=== PATIENT | female | born 1970 ===

== ENCOUNTER 2020-04-05 11:45 | Outpatient (REF) | payer OTHER, SELFPAY ==
[2020-04-05 14:15] LABS: SARS COV2 IgG Negative (Negative)
[2020-04-05 14:52] LABS: Creatinine Urine 91.46 mg/dL; Microalbumin Urine < 5.0 mg/L
== END 2020-04-05 11:46 | disposition home or self-care (01) ==
LOC: HO.WFDLDS 11:45
PROVIDERS: Visit Provider Family Medicine
DX: Z20.828 Contact with and (suspected) exposure to other viral communicable diseases (principal)
CPT/HCPCS: 82043; 86769; U0003

== ENCOUNTER 2020-04-06 08:08 | Outpatient (REF) | payer OTHER, SELFPAY ==
[2020-04-06 12:30] LABS: Alanine Aminotransferase 63 U/L (0-31); Albumin Level 4.4 g/dL (3.5-5.0); Alkaline Phosphatase 64 U/L (39-117); Anion Gap 12 (12-20); Aspartate Amino Transferase 35 U/L (5-31); Bilirubin Total 0.8 mg/dL (0.0-1.0); Blood Urea Nitrogen 12 mg/dL (9-16); Calcium 9.1 mg/dL (8.4-10.2); Carbon Dioxide 27 mmol/L (22-29); Chloride 100 mmol/L (96-108); Cholesterol 210 mg/dL; Estimated Glomerular Filt Rate > 60; Glucose Fasting 89 mg/dL (60-99); HDL Cholesterol 33 mg/dL; LDL Cholesterol Calculated 128 mg/dl; Potassium 4.4 mmol/l (3.3-5.1); Sodium 135 mmol/L (135-145); Total Protein 7.1 g/dL (6.5-8.0); Triglycerides 247 mg/dL
[2020-04-06 12:51] LABS: TSH reflex Free T4 1.98 mIU/mL (0.32-4.0)
== END 2020-04-06 08:09 | disposition home or self-care (01) ==
LOC: HO.WFDLDS 08:08
PROVIDERS: Visit Provider Family Medicine
DX: Z00.00 Encounter for general adult medical examination without abnormal findings (principal); Z13.220 Encounter for screening for lipoid disorders; Z13.29 Encounter for screening for other suspected endocrine disorder
CPT/HCPCS: 80053; 80061; 84443

== ENCOUNTER → 2022-03-16 08:50 | Outpatient (BNVA) | payer OTHER, SELFPAY | PROVIDERS: PCP Internal Medicine; Visit Provider Surgery | DX: K40.90 Unilateral inguinal hernia, without obstruction or gangrene, not specified as recurrent (principal); E66.01 Morbid (severe) obesity due to excess calories; Z68.30 Body mass index [BMI] 30.0-30.9, adult | CPT/HCPCS: 36415; 80053; 83036; 85025; 99202 ==

== ENCOUNTER 2022-03-16 09:25 | Outpatient (REF) | payer OTHER, SELFPAY ==
[2022-03-16 09:45] LABS: MANUAL DIFF FLAG NO
[2022-03-16 10:14] LABS: Basophils Percent Auto 0.7 % (0-2); Eosinophils Absolute Auto 0.1 X10*3/uL (0.0-0.4); Eosinophils Percent Auto 1.8 % (0-4); Hematocrit 45.6 % (37.0-47.0); Hemoglobin 15.5 g/dl (12.0-16.0); Imm Gran Abs Auto 0.03 X10*3/uL (0.00-0.03); Imm Gran Pct Auto 0.5 % (0.0-0.4); Lymphocytes Percent Auto 17.7 % (20-40); Mean Corpuscular Hemoglobin 31.7 pg (27.0-33.0); Mean Corpuscular Volume 93.3 fL (80.0-98.0); Mean Platelet Volume 10.4 fL (9.4-12.3); Monocytes Absolute Auto 0.5 X10*3/uL (0.1-1.2); Monocytes Percent Auto 8.2 % (2-11); Neutrophils Percent Auto 71.1 % (45-73); Platelet Count 188 X10*3/uL (160-400); Red Blood Count 4.89 X10*6/uL (4.20-5.50); Red Cell Distribution Width 12.4 % (11.0-16.0); White Blood Count 5.6 X10*3/uL (4.8-10.8)
[2022-03-16 10:29] LABS: Estimated Average Glucose 88 mg/dL; Hemoglobin A1c % 4.7 %
[2022-03-16 10:51] LABS: Alanine Aminotransferase 41 U/L (0-31); Albumin Level 4.4 g/dL (3.5-5.0); Alkaline Phosphatase 76 U/L (39-117); Anion Gap 14 (12-20); Aspartate Amino Transferase 26 U/L (5-31); Bilirubin Total 0.6 mg/dL (0.0-1.0); Blood Urea Nitrogen 9 mg/dL (9-16); Calcium 9.1 mg/dL (8.4-10.2); Carbon Dioxide 25 mmol/L (22-29); Chloride 105 mmol/L (96-108); Estimated Glomerular Filt Rate > 60; Glucose Random 98 mg/dL (60-115); Sodium 139 mmol/L (135-145); Total Protein 7.1 g/dL (6.5-8.0)
== END 2022-03-16 09:26 | disposition home or self-care (01) ==
LOC: HO.LAB 09:25
PROVIDERS: Visit Provider Surgery
DX: Z13.89 Encounter for screening for other disorder (principal)
CPT/HCPCS: 36415; 80053; 83036; 85025

== ENCOUNTER 2022-03-22 09:03 | Outpatient (REF) | payer OTHER, SELFPAY ==
--- NOTE | ~2022-03-22 | CT_ITS ---
EXAMINATION: CT PELVIS WITHOUT CONTRAST CLINICAL INFORMATION: Unilateral inguinal hernia COMPARISON: None TECHNIQUE: Helical scanning was performed with submillimeter collimation through the pelvis. Sagittal and coronal multiplanar 2-D reconstructions were obtained. This CT examination was performed using dose optimization techniques as appropriate, variously including the following: *Automated exposure control *Adjustment of mA and/or kV according to patient size (this includes techniques or standardized protocols for targeted exams where dose is matched to indication/reason for exam; i.e. extremities or head) *Use of iterative reconstruction technique DLP: 840 mGy-cm FINDINGS: There is a very large right direct inguinal hernia containing fat, small bowel, cecum and appendix. There is a large left inguinal hernia containing small bowel, fat and some of the bladder. This appears to have both direct and indirect inguinal hernia components. There is a small umbilical hernia containing fat. There is mild diverticulosis of the colon. Visualized bowel is otherwise unremarkable. There is no evidence of obstruction.. No ascites or enlarged lymph nodes. Vascular structures are normal. The prostate gland does not appear enlarged. Mild scoliosis with curvature of the lumbar sacral spine to the right and degenerative changes. CT/CT pelvis wo IV con IMPRESSION: Very large right inguinal hernia containing fat, small bowel, cecum and appendix. Large left inguinal hernia containing fat, small bowel and some of the bladder.
== END 2022-03-22 09:04 | disposition home or self-care (01) ==
LOC: HO.CT 09:03
PROVIDERS: Visit Provider Surgery
DX: K40.90 Unilateral inguinal hernia, without obstruction or gangrene, not specified as recurrent (principal)
CPT/HCPCS: 72192

== ENCOUNTER → 2022-03-30 09:04 | Outpatient (BNVA) | payer OTHER, SELFPAY | PROVIDERS: PCP Internal Medicine; Referring Provider Internal Medicine; Visit Provider Surgery | DX: K40.20 Bilateral inguinal hernia, without obstruction or gangrene, not specified as recurrent (principal); E66.01 Morbid (severe) obesity due to excess calories; R03.0 Elevated blood-pressure reading, without diagnosis of hypertension; Z68.30 Body mass index [BMI] 30.0-30.9, adult | CPT/HCPCS: 99212 ==

== ENCOUNTER → 2022-06-14 13:25 | Outpatient (BNVA) | payer OTHER, SELFPAY | PROVIDERS: PCP Internal Medicine; Visit Provider Surgery | DX: K40.20 Bilateral inguinal hernia, without obstruction or gangrene, not specified as recurrent (principal); E66.01 Morbid (severe) obesity due to excess calories; E78.1 Pure hyperglyceridemia; R03.0 Elevated blood-pressure reading, without diagnosis of hypertension; Z68.29 Body mass index [BMI] 29.0-29.9, adult | CPT/HCPCS: 99212 ==

== ENCOUNTER → 2022-08-06 09:03 | Outpatient (BNVA) | payer OTHER, SELFPAY | PROVIDERS: PCP Internal Medicine; Referring Provider Internal Medicine; Visit Provider Surgery | DX: K40.20 Bilateral inguinal hernia, without obstruction or gangrene, not specified as recurrent (principal); K40.90 Unilateral inguinal hernia, without obstruction or gangrene, not specified as recurrent; R03.0 Elevated blood-pressure reading, without diagnosis of hypertension; E78.1 Pure hyperglyceridemia; E66.01 Morbid (severe) obesity due to excess calories; Z68.29 Body mass index [BMI] 29.0-29.9, adult | CPT/HCPCS: 99212 ==

== ENCOUNTER 2022-08-23 06:07 | Day surgery (SDC) | payer OTHER, SELFPAY ==
[2022-08-17 12:37] VITALS: BMI 29.7
[2022-08-23 06:09] VITALS: BP 153/98; PULSE 74; RESP 18; TEMP 36.1; O2SAT 98
[2022-08-23] MEDS: Lactated Ringers 1,000 ML 100 ML IVCONT (06:33)
--- NOTE | 2022-08-23 06:55 | P.OP_ITS ---
Operative Note Operative Note Date of Service: 08/23/22 Narrative: Preop diagnosis: [Bilateral inguinal hernia, ? recurrent] Postop diagnosis: [Same; recurrent right direct and indirect inguinal hernia; recurrent direct left inguinal hernia containing viable properitoneal fat] Procedure: [Bilateral open repair with Bard polypropylene mesh of recurrent inguinal hernia] Surgeon: Chris Jacobson MD Assist: [] Anesthesia: [General via LMA; Marcaine, 0.5% with epi] Estimated blood loss: [3cc] Specimen: [Right indirect hernia sac] Intraoperative findings: [After the patient was shaved, an approximately 20 cm suprapubic incision extending into both groin just below the pubic tubercle was noted. Prior to the patient being shaved, this could not be discerned. A direct and indirect right inguinal hernia containing viable properitoneal fat was identified and the indirect hernia sac highly dissected and ligated with a [place] ring plasty performed. The right floor was imbricated and a standard [place] tension-free hernia repair performed. The entire left inguinal floor was disrupted from the pubic tubercle to the internal ring and was imbricated; a [place] tension-free herniorrhaphy with polypropylene mesh was performed.] Indications: [The patient is a 52-year-old [facility] min who moved to the [facility] and is had issues with bilateral inguinal hernias that are enlarging. There been no signs or symptoms of incarceration, strangulation or obstruction, however he has a transverse suprapubic incision from the left to right groin that may be consistent with pediatric hernia repairs. However, the patient has now recollection and is unable to obtain such history. Because the hernias are symptomatic, he was interested in repair, so I recommended open, bilateral inguinal hernia repair with mesh. The risks, benefits and alternatives were reviewed and the patient seemed understand and wanted to proceed. I reviewed the potential risks of: Bleeding, infection, hernia recurrence especially if weight gain or postoperative instructions are not followed, nerve entrapment, chronic pain, urinary retention, mesh complications that could require reoperation. The patient seemed understand his options including the option of continued observation or referral to a larger institution. He wanted to proceed. In the preoperative holding area, the previously hidden transverse pubic scar, approximately 8 in was noted in discussed with the patient. The additional risk of injury to his testicles if a prior hernia repair had disrupted blood supply an increased risk for pain related to distorted nerve anatomy was also reviewed with the patient. The option of rescheduling was reviewed but declined by the patient.] Procedure: [The patient was identified in the preoperative holding area by myself and the operative sites marked by me confirming bilateral inguinal hernia; since the right side was most symptomatic, the patient and I agreed that would I would begin on his right, most symptomatic side.. 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 The operative field hair had been clipped in preop holding and we discussed the previously not visible transverse pubic area scar and its glo ifications. The patient was again identified in the operating suite 3 and placed supine on the table. See anesthesia notes for full details regarding anesthesia care and management. An appropriate time-out was performed confirming the operative site and procedure. The patient was then widely prepped and draped in the usual manner using chlorprep which included both groins. I began at the patient's more symptomatic right groin: An ileoinguinal nerve block was performed using Marcaine, 0.5% with epi and a standard inguinal herniorrhaphy incision made sharply through the skin. Dissection was carried through all layers using electric cautery for dissection and hemostasis. Obvious scarring from the skin incision that went down through the external oblique aponeurosis and into the inguinal canal was present. Additional local was infiltrated is the external oblique aponeurosis, in the external oblique aponeurosis opened sharply in the direction of its fibers to the external ring. The ilioinguinal nerve was not identified through the dissection due to distorted anatomy. The cord was mobilized at the level of the pubic tubercle and surrounded with hernia tape. The floor was inspected and a direct hernia through the floor measuring approximately 2 x 8 cm was found; a large right indirect hernia sac extending into the right scrotum was also carefully dissected. Careful dissection of the spermatic cord to preserve the vessels and vas was performed to preserve these structures. The right indirect hernia sac was highly dissected, opened, its contents reduced and suture ligation performed, with the sac being sent for permanent section. Next, the floor was imbricated using a 2-0 Polysorb and a standard [place] tension-free herniorrhaphy performed using Bard 3 in x 6 in polypropylene patch that was trimmed to 2.5 by 5 inch and was sutured to the pubic tubercle and inguinal ligament using a 2-0 Polysorb. A new internal ring was made using 2-0 polypropylene suture. The new internal ring was snug enough that it could just accommodate a tip of a hemostat. Next, the operative field was inspected for hemostasis which was good, the external oblique aponeurosis was closed with a running 0 Polysorb suture, subcutaneous tissues closed with 3-0 Polysorb and skin closed with running 4-0 Monocryl subcuticular suture. Next, I changed gloves and performed a left ileoinguinal nerve block was performed using Marcaine, 0.5% with epi and a standard inguinal herniorrhaphy incision made sharply through the skin. Dissection was carried through all layers using electric cautery for dissection and hemostasis. Obvious scarring from the skin incision that went down through the external oblique aponeurosis and into the left inguinal canal was present as noted on the patient's right side. Additional local was infiltrated is the external oblique aponeurosis, in the external oblique aponeurosis opened sharply in the direction of its fibers to the external ring. The ilioinguinal nerve was not identified through the dissection due to distorted anatomy. The cord was mobilized at the level of the pubic tubercle and surrounded with hernia tape. The floor was inspected and a large direct hernia through the floor measuring approximately 2 x 8 cm was found; a large right indirect hernia sac extending into the right scrotum was also carefully dissected. Careful dissection of the spermatic cord to preserve the vessels and vas was performed to preserve these structures and there was no evidence of an indirect hernia sac. Next, the floor was imbricated using a 2-0 Polysorb and a standard [place] tension-free herniorrhaphy performed using Bard 3 in x 6 in polypropylene patch that was trimmed to 2.5 by 5 inch and was sutured to the pubic tubercle and inguinal ligament using a 2-0 Polysorb. A new internal ring was made using 2-0 polypropylene suture. The new internal ring was snug enough that it could just accommodate a tip of a hemostat. Next, the operative field was inspected for hemostasis which was good, the external oblique aponeurosis was closed with a running 0 Polysorb suture, subcutaneous tissues closed with 3-0 Polysorb and skin closed with running 4-0 Monocryl subcuticular suture. Patient tolerated the procedure well was sent to the recovery area in stable condition. All sponge and instrument counts were correct x2. At the patient's request, I contacted his Loretta by telephone at [phone] to apprise her of the procedure. Instructions regarding activity and pain management, urinary retention and bowel regime were reviewed. Questions were answered.]
--- NOTE | 2022-08-23 06:55 | MHC.SHP ---
Pre-Procedural Eval Section A Date of Service: 08/23/22 The patient is an INPATIENT: No The History & Physical has been completed within 30 days and I have reviewed it.: Yes Section B Chief Complaint: Bilateral inguinal hernia, without obstruction Allergies: Allergies Allergy/AdvReac Type Severity Reaction Status Date / Time No Known Allergies Allergy Verified 08/06/22 09:13 [No Known Allergies*] Plan I have reviewed the history and physical and performed a pertinent physical examination on my patient. No changes have occurred unless specified. Time Spent With Patient Time: Total time managing care of this patient today ____ minutes.
--- NOTE | 2022-08-23 07:16 | HO.ANESPROP2 ---
HPI - Anesthesia Eval Consult details Narrative: bilat. ihrs [facility] Active Problems Active Problems: All Active Problems (Updated 08/23/22 @ 06:22 by Camille Jaimes RN) Elevated blood pressure reading without diagnosis of hypertension (Acute) Morbid (severe) obesity due to excess calories (Acute) Inguinal hernia bilateral, non-recurrent (Acute) Hypertriglyceridemia (Acute) Right inguinal hernia (Acute) Past Medical History Medical History (Updated 08/23/22 @ 06:22 by Camille Jaimes RN) Close exposure to 2019 novel coronavirus Laboratory examination ordered as part of a routine general medical examination Right inguinal hernia Family History Family history of problems with anesthesia: No Surgical History Surgical History (Updated 08/23/22 @ 06:23 by Camille Jaimes RN) H/O colonoscopy History of cardiac radiofrequency ablation History of Problems with Anesthesia: No Social History Social History Household Members: Spouse and Children Housing: Apartment Alcohol intake: current Alcohol intake frequency: holidays/special occasions only Patient Tobacco Use Status: Former Tobacco user Quit Date: 2001 Tobacco use type: Cigarette Use of substances other than those prescribed or required for medical reasons: Yes Substance Use Frequency: Occasionally Are you DNR?: No Advance Directives: No Advance Directives Information Provided: Yes (brochure mailed) Advance Directives on File: No Eating poorly because of decreased appetite: No Nutrition Risks: No Nutritional Risk Meds Allergies Allergy/AdvReac Type Severity Reaction Status Date / Time No Known Allergies Allergy Verified 08/06/22 09:13 [No Known Allergies*] Active Medications: Current Medications Lactated Ringer's (Lr) 1,000 mls @ 100 mls/hr IVCONT .Q10H [facility] Last Admin: 08/23/22 06:33 Dose: 100 mls/hr Home Medications Medication Instructions Recorded Confirmed Last Taken Type No Known Home Meds 03/12/22 08/17/22 Unknown History Exam Exam Date and Time: August 23, 2022 0716 Height,Weight and Vital Signs: Height 6 ft 1 in Weight 102.4 kg Last Vital Signs Temp 96.9 F 08/23/22 06:09 Pulse 74 08/23/22 06:09 Resp 18 08/23/22 06:09 BP 153/98 H 08/23/22 06:09 Pulse Ox 98 08/23/22 06:09 O2 Del Method Room Air 08/23/22 06:09 Airway Mallampati Class: II TM Dist: >3cm Neck ROM: Full Heart: rrr Lungs: cta Assessment and Plan Assessment Anesthesia Assessment: Anesthesia Plan Discussed and Chart Reviewed Final Anesthetic Review Family History of Problems with Anesthesia: No History of Problems with Anesthesia: No NPO: Yes ASA Class: II Final Preanesthetic Review: No Changes in Pt Med Stat, Meds/Allgs Chart Reviewed, Consent Obtained/Reviewed and Anes Risks/Benef Reviewed Patient Risk: Low Procedure Risk: Intermediate Anesthetic Plan Anesthetic Plan: GA Disposition: Standard PACU
[2022-08-23 09:55] VITALS: BP 136/84; PULSE 96; RESP 16; TEMP 36.8; O2SAT 93
[2022-08-23 10:00] VITALS: BP 141/85; PULSE 94; RESP 15; O2SAT 93
[2022-08-23 10:05] VITALS: BP 132/90; PULSE 82; RESP 15; O2SAT 93
[2022-08-23 10:20] VITALS: BP 133/83; PULSE 83; RESP 15; O2SAT 96
[2022-08-23 10:29] VITALS: BP 129/80; PULSE 83; RESP 15; TEMP 36.7; O2SAT 97
== END 2022-08-23 11:03 | disposition home or self-care (01) ==
LOC: HO.SSS 06:08
PROVIDERS: PCP Internal Medicine; Visit Provider Surgery
PROC: (CPT 49520; principal; 2022-08-23 07:30)
DX: K40.21 Bilateral inguinal hernia, without obstruction or gangrene, recurrent (principal); E66.01 Morbid (severe) obesity due to excess calories; Z68.29 Body mass index [BMI] 29.0-29.9, adult
CPT/HCPCS: 49520; 88302; C1781; J0131; J0690; J1100; J1885; J2405; J3010

== ENCOUNTER → 2022-08-31 09:35 | Outpatient (BNVA) | payer OTHER, SELFPAY | PROVIDERS: PCP Internal Medicine; Visit Provider Surgery | DX: K40.21 Bilateral inguinal hernia, without obstruction or gangrene, recurrent (principal) | CPT/HCPCS: 99212 ==

== ENCOUNTER → 2022-10-01 09:05 | Outpatient (BNVA) | payer OTHER, SELFPAY | PROVIDERS: PCP Internal Medicine; Visit Provider Surgery | DX: K40.21 Bilateral inguinal hernia, without obstruction or gangrene, recurrent (principal); R03.0 Elevated blood-pressure reading, without diagnosis of hypertension; R39.11 Hesitancy of micturition; E78.1 Pure hyperglyceridemia; E66.01 Morbid (severe) obesity due to excess calories | CPT/HCPCS: 99212 ==

== ENCOUNTER → 2022-10-16 08:25 | Outpatient (BNVA) | payer OTHER, SELFPAY | PROVIDERS: PCP Internal Medicine; Visit Provider Surgery | DX: T81.89XA Other complications of procedures, not elsewhere classified, initial encounter (principal); R39.11 Hesitancy of micturition | CPT/HCPCS: 99212 ==

== ENCOUNTER → 2022-10-31 09:44 | Outpatient (BNVA) | payer OTHER, SELFPAY | PROVIDERS: PCP Internal Medicine; Visit Provider Surgery | DX: T81.89XA Other complications of procedures, not elsewhere classified, initial encounter (principal); R39.11 Hesitancy of micturition | CPT/HCPCS: 99212 ==

== ENCOUNTER 2023-01-02 13:18 | Outpatient (AMB) | payer OTHER, SELFPAY ==
--- NOTE | 2023-01-02 13:44 | MHC.OFFVIS ---
Intake Intake Visit Reasons: Hesitancy of micturition Intake Note: New Patient is Present for Hesitancy of Micturition Current Medication:none Antibiotic Allergy:None Blood Thinner: None Pharmacy: [facility] Patient couldn't provide urine and did not want Bladder Scan Allergies No Known Allergies [No Known Allergies*] Allergy (Verified 01/02/23 13:45) Medication List - Last Reconciled 01/02/23 by Jax Mcgill MD No Known Home Meds HPI HPI Comments History of Present Illness Details Ortega is a very pleasant male. He is a patient of Dr Dempsey. He is seen for the following urologic conditions - lower urinary tract symptoms Lower urinary tract symptoms Initial symptom presentation - lower urinary tract symptoms predominantly obstructive. Current treatment includes - observation Prostate Symptom Score - Initial moderate with bother 2 Symptoms include - frequency, weakness of stream - and are gradually progressing Knows that he drinks too much coffee Treatment plan - trial tamsulosin PFS Medical History Close exposure to 2019 novel coronavirus Laboratory examination ordered as part of a routine general medical examination Right inguinal hernia Surgical History H/O colonoscopy History of bilateral inguinal hernia repair (08/23/22) History of cardiac radiofrequency ablation Social History Household Members: Spouse and Children Housing: Apartment Alcohol intake: current Alcohol intake frequency: holidays/special occasions only Patient Tobacco Use Status: Former Tobacco user Quit Date: 2001 Tobacco use type: Cigarette Review of Systems Const Denies chills and Denies fever(s) Card Reports no additional complaints and Denies syncope Resp Denies cough GI Denies abdominal pain and Denies heartburn Reports as per HPI and Denies change in libido Neuro Denies syncope Psych Denies change in libido Endo Denies change in libido Physical Exam Const General: cooperative, healthy appearing, comfortable and no acute distress Orientation/consciousness: patient oriented x3 HEENT Face and sinus: Yes normal facial exam Mouth: moist mucous membranes Neck Neck: Yes normal visual inspection, Yes full ROM and Yes trachea midline Chest Chest palpation & inspection: normal inspection of the chest Resp Effort & Inspection: normal respiratory effort, able to speak in complete sentences and no respiratory distress GI Inspection: Yes normal to inspection Back/Spine/Pelvis Cervical Spine: normal cervical lordosis Thoracic/Lumbar Spine: thoracic and lumbar spine normal to inspection Skin General skin exam: no rashes or lesions noted Neuro General: patient oriented x3, gait normal, tone normal and moves all extremities Extrem General: Yes normal to inspection and Yes capillary refill normal Assessment & Plan Assessment & Plan (1) Urinary hesitancy: Code(s): R39.11 - Hesitancy of micturition (2) Bladder outlet obstruction: Code(s): N32.0 - Bladder-neck obstruction Plan Trial tamsulosin Medications: New tamsulosin 0.4 mg PO BEDTIME 30 days 30 caps 1RF N40.1 - Benign prostatic hyperplasia with lower urinary tract symptoms, R35.1 - Nocturia, R39.11 - Hesitancy of micturition Patient Instructions: Imaging studies, laboratory and physical exam results were discussed and reviewed in detail. No major barriers to patient understanding were identified. An opportunity to ask questions regarding the treatment plan was provided. All questions were answered. The patient expressed understanding and agreement with the above treatment plan. The patient is aware they should contact our office by phone for worsening of their current condition or the appearance of new urologic symptoms. Compliance is encouraged with any medications and followup testing that is ordered. It is a privilege to participate in the urologic care of your patient. If you have any questions or concerns regarding treatment for the above conditions, or other urologic issues, please do not hesitate to contact me. The office telephone contact is [phone]. This note is constructed using voice recognition software. While every effort has been made to ensure accuracy associate financial advisor errors may have been included. Yours sincerely, Dr Jax Mcgill MD, [facility] - Urology Providers of Expert, Compassionate Care for the Genitourinary System Coding Level of Care Code New Pt Level 4 (62304) Diagnoses Urinary hesitancy R39.11 Bladder outlet obstruction N32.0
== END 2023-01-02 14:07 | disposition home or self-care (01) ==
PROVIDERS: Visit Provider Urology
DX: R39.11 Hesitancy of micturition (principal); N32.0 Bladder-neck obstruction
CPT/HCPCS: 99204

== ENCOUNTER → 2023-01-02 13:18 | Outpatient (BNVA) | payer OTHER, SELFPAY | PROVIDERS: Visit Provider Urology | DX: R39.11 Hesitancy of micturition (principal); N32.0 Bladder-neck obstruction | CPT/HCPCS: 99202 ==

== ENCOUNTER 2023-07-02 10:18 | Outpatient (AMB) | payer OTHER, SELFPAY ==
[2023-07-02 10:23] VITALS: BP 144/90; PULSE 72; O2SAT 100; BMI 30.9
--- NOTE | 2023-07-02 10:23 | A.OFFPC_ITS ---
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: No Allergies No Known Allergies [No Known Allergies*] Allergy (Verified 07/02/23 10:24) Medication List - Last Reconciled 07/02/23 by Chey Dempsey MD Tobacco use date assessed: 07/02/23 Dental Screening Dental Screen Date: 07/02/23 Did you have a dental visit in the last 12 months?: Yes Did you have a dental problem in the last 6 months where you did not have access to dental care?: No Was dental information given to patient?: Patient has dentist HPI PEDIATRICIAN /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 Review of the notes sees Urology for bladder outlet obstruction on tamsulosin. Patient also has bilateral inguinal hernia with left inguinal repair August 2021 patient also had a right indirect inguinal hernia herniorrhaphy in August 2022. 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 in [place] ablation done 2009 for atrial fibrillation. [facility] Medical History (Updated 07/02/23 @ 11:01 by Chey Dempsey MD) Vision changes Nasal fracture Recurrent bilateral inguinal hernia (BIH) Morbid (severe) obesity due to excess calories Right inguinal hernia Laboratory examination ordered as part of a routine general medical examination Close exposure to 2019 novel coronavirus Surgical History (Updated 07/02/23 @ 10:30 by Chey Dempsey MD) Inguinal hernia bilateral, non-recurrent History of bilateral inguinal hernia repair (08/23/22) H/O colonoscopy History of cardiac radiofrequency ablation Family History (Updated 07/02/23 @ 10:44 by Chey Dempsey MD) Paternal Uncle Lung cancer Social History (Updated 07/02/23 @ 10:45 by Chey Dempsey MD) Household Members: Spouse and Children Housing: Apartment Alcohol intake: current Alcohol intake frequency: holidays/special occasions only Comment: 4x a week 2 glasses Patient Tobacco Use Status: Former Tobacco user Quit Date: 2001 Tobacco use type: Cigarette Years Smoked: 1999 quit service: No Current occupational status: employed Cognitive needs: No Hearing needs: No Vision needs: No Questionnaire PHQ-9 Over the last 2 weeks, how often have you been bothered by any of the following problems? 1. Little interest or pleasure in doing things: not at all 2. Feeling down, depressed, or hopeless: not at all 3. Trouble falling or staying asleep, or sleeping too much: not at all 4. Feeling tired or having little energy: not at all 5. Poor appetite or overeating: not at all 6. Feeling bad about yourself - or that you are a failure or have let yourself or your family down: not at all 7. Trouble concentrating on things, such as reading the newspaper or watching television: not at all 8. Moving or speaking so slowly that other people could have noticed. Or the opposite - being so fidgety or restless that you have been moving around a lot m ore than usual: not at all 9. Thoughts that you would be better off or of hurting yourself in some way: not at all Total score: 0 Depression Screening Interpretation: Negative Depression Screening Done: Yes Source: Developed by Drs. Enrike Parrish, Nancy Pham, Ajit Waggoner and colleagues, with an educational amelie from [employer]. Thrive Questionnaire Date Thrive assessed: 07/02/23 I am a: Patient What is your living situation today?: I have a steady place to live Within the past 12 months, did the food you bought not last and you didn't have the money to get more?: Never true Within the past 12 months, did you worry whether your food would run out before you got money to buy more?: Never true Do you have trouble paying for medicines?: No Do you have trouble getting transportation to medical appointments?: No Do you have trouble paying your heating and electricity bill?: No Do you have trouble taking care of your child, family member or friend?: No Do you have trouble with day-to-day activities such as bathing, preparing meals, shopping, managing finances, etc.?: No Are you currently unemployed and looking for a job?: No Are you interested in more education?: No Please select the resources that you would like help with: None THRIVE Score: 0 AUDIT C Alcohol Use Questionnaire (AUDIT-C) 1. How often do you have a drink containing alcohol?: 4 or more times a week 2. How many drinks containing alcohol do you have on a typical day when you are drinking?: 1 or 2 3. How often do you have six or more drinks on one occasion?: Never Total Score: 4 MANJINDER-7 AMB Questionnaire MANJINDER-7 Date MANJINDER - 7 assessed: 07/02/23 Feeling nervous, anxious, or on edge: 0 = Not at all Not being able to stop or control worryin = Not at all Worrying too much about different things: 0 = Not at all Trouble relaxin = Not at all Being so restless that it is hard to sit still: 0 = Not at all Becoming easily annoyed or irritable: 0 = Not at all Feeling afraid as if something awful might happen: 0 = Not at all Total MANJINDER-7 score (0-4 normal; 5-9 mild; 10-14 moderate; 15-21 severe): 0 Source: Developed by Drs. Enrike Parrish, Nancy Pham, Ajit Waggoner and colleagues, with an educational amelie from [employer]. Physical exam (Primary Care) Vital Signs: Last Vital Signs Pulse 72 07/02/23 10:23 BP 144/90 H 07/02/23 10:23 Pulse Ox 100 07/02/23 10:23 Oxygen Delivery Method Room Air 07/02/23 10:23 BMI result Body Mass Index 30.9 Tobacco/Smoking Status: Tobacco use Status Tobacco use date assessed 07/02/23 07/02/23 10:30 Patient Tobacco Use Status Former Tobacco user 07/02/23 10:30 Tobacco use type Cigarette 07/02/23 10:30 PHQ-9: PHQ-9 Score PHQ-9: Total score 0 07/02/23 10:30 Depression Screening Interpretation: Negative Thrive Assessment: Date of Thrive Assessment Date Thrive assessed 07/02/23 07/02/23 10:30 Const General: alert; No acute distress Eyes Conjunctivae: conjunctivae normal Resp Auscultation: clear to auscultation bilaterally Cardio Rate: regular rate Rhythm: regular rhythm GI Inspection: Yes normal to inspection Extrem General: Yes normal to inspection and No edema Assessment and Plan Assessment & Plan (1) Hypertriglyceridemia: Code(s): E78.1 - Pure hyperglyceridemia Plan: Avoid fried foods, chicken skin, eggs, butter margarine, pastries and meat. Be it pork or beef they have a lot of cholesterol LDL goal of less than 130 and triglyceride of less than 150 (2) Elevated blood pressure reading without diagnosis of hypertension: Code(s): R03.0 - Elevated blood-pressure reading, without diagnosis of hypertension Plan: Advised to continue monitoring blood pressure and record. Advised to sit down for about 3-5 minutes before getting the blood pressure. Low-salt diet (3) Obesity (BMI 30.0-34.9): Code(s): E66.9 - Obesity, unspecified Plan: Diet and exercise (4) Bladder outlet obstruction: Code(s): N32.0 - Bladder-neck obstruction Plan: Patient follows up with urology and placed on tamsulosin but decided to hold this off and will work it up with ultrasound. (5) Atrial fibrillation: Comment: Ablation 2009 Code(s): I48.91 - Unspecified atrial fibrillation Plan: Echocardiogram and EKG requested (6) Colon cancer screening: Code(s): Z12.11 - Encounter for screening for malignant neoplasm of colon Plan: Referral to Gastroenterology (7) LFT elevation: Code(s): R79.89 - Other specified abnormal findings of blood chemistry Plan: Advised ultrasound of the abdomen and hepatitis profile (8) Frequency of micturition: Code(s): R35.0 - Frequency of micturition Plan: Ultrasound of the bladder requested (9) Vision changes: Code(s): H53.9 - Unspecified visual disturbance Plan: Referral to Ophthalmology Orders: Orders Comprehensive Met. Panel Today R79.89 - Other specified abnormal findings of blood chemistry Complete Blood Count Auto Diff Today R79.89 - Other specified abnormal findings of blood chemistry Free T4 (Free Thyroxine) Today R79.89 - Other specified abnormal findings of blood chemistry Hepatitis B,C Profile Today R79.89 - Other specified abnormal findings of blood chemistry Lipid Panel Today E78.00 - Pure hypercholesterolemia, unspecified, R79.89 - Other specified abnormal findings of blood chemistry ECG 12 lead EKG Today I48.91 - Unspecified atrial fibrillation CA echo transthoracic complete Today I48.91 - Unspecified atrial fibrillation Thyroid Stimulating Hormone Today R79.89 - Other specified abnormal findings of blood chemistry Vitamin B12 and Folate Today R79.89 - Other specified abnormal findings of blood chemistry Prostate Specific Antigen Scr Today R79.89 - Other specified abnormal findings of blood chemistry US abdomen complete Today R79.89 - Other specified abnormal findings of blood chemistry US bladder Today R35.0 - Frequency of micturition Referrals Gastroenterology Referral Z12.11 - Encounter for screening for malignant neoplasm of colon Ophthalmology Referral H53.9 - Unspecified visual disturbance Coding Level of Care Code New Pt Level 4 (19549) Diagnoses Hypertriglyceridemia E78.1 Elevated blood pressure reading without diagnosis of hypertension R03.0 Obesity (BMI 30.0-34.9) E66.9 Bladder outlet obstruction N32.0 Atrial fibrillation I48.91 Colon cancer screening Z12.11 LFT elevation R79.89 Frequency of micturition R35.0 Vision changes H53.9
== END 2023-07-02 11:07 | disposition home or self-care (01) ==
PROVIDERS: PCP Internal Medicine; Visit Provider Internal Medicine
DX: E78.1 Pure hyperglyceridemia (principal); I48.91 Unspecified atrial fibrillation; E66.9 Obesity, unspecified; Z68.30 Body mass index [BMI] 30.0-30.9, adult; R03.0 Elevated blood-pressure reading, without diagnosis of hypertension; N32.0 Bladder-neck obstruction; Z12.11 Encounter for screening for malignant neoplasm of colon; R79.89 Other specified abnormal findings of blood chemistry; R35.0 Frequency of micturition; H53.9 Unspecified visual disturbance
CPT/HCPCS: 99214

== ENCOUNTER 2023-07-22 10:44 | Outpatient (REF) | payer OTHER, SELFPAY ==
--- NOTE | ~2023-07-22 | US_ITS ---
EXAMINATION: US ABDOMEN COMPLETE CLINICAL INFORMATION: Other specified abnormal findings of blood chemistry. COMPARISON: Ultrasound bladder 07/22/2023. TECHNIQUE: Real-time imaging of the abdominal viscera. Limited visualization due to bowel gas. FINDINGS: PANCREAS: Limited visualization of pancreatic tail and head. Imaged portion of pancreatic body is unremarkable. ABDOMINAL AORTA: Nonaneurysmal. INFERIOR VENA CAVA: Visualized portions are normal. LIVER: Mildly increased hepatic parenchymal heterogeneity and echogenicity could be associated with hepatocellular disease/hepatic steatosis and substantially limits visualization. Correlation with liver function tests and clinical exam recommended to determine further management. GALLBLADDER: No gallstones. No gallbladder wall thickening. COMMON BILE DUCT: Normal in caliber measuring 0.3 cm in diameter. RIGHT KIDNEY: No hydronephrosis. No renal calculi. Limited visualization. A 1.8 cm [id number] pole cyst with possible thin septation. There is no specific indication for follow-up imaging at this time. The kidney measures 12.4 cm in maximum dimension. LEFT KIDNEY: No hydronephrosis. No renal calculi. Limited visualization. The kidney measures 11.8 cm in maximum dimension. SPLEEN: Splenomegaly. The spleen measures 16.6 cm in maximum dimension. FREE FLUID: None. US/US abdomen complete IMPRESSION: 1. Mildly increased hepatic parenchymal heterogeneity and echogenicity could be associated with hepatocellular disease/hepatic steatosis and substantially limits visualization. Correlation with liver function tests and clinical exam recommended to determine further management. 2. Splenomegaly.
--- NOTE | ~2023-07-22 | US_ITS ---
EXAMINATION: US PELVIS LIMITED (BLADDER) CLINICAL INFORMATION: Frequency of micturition. COMPARISON: Ultrasound abdomen complete 07/22/2023. TECHNIQUE: Real-time imaging of the bladder. FINDINGS: BLADDER: Partially distended, limiting evaluation. Mild diffuse irregularity of the bladder wall, difficult to evaluate due to suboptimal distention. Bilateral ureteral jets are demonstrated. Prevoid bladder volume is 167.5 mL. Postvoid bladder volume is 29.2 mL. ADDITIONAL FINDINGS: Prostate volume 22.2 mL. Echogenic foci within the prostate are characteristic of coarse calcifications. US/US bladder IMPRESSION: 1. Mild diffuse irregularity of the bladder wall difficult to evaluate due to suboptimal distention. 2. Postvoid bladder volume is 29.2 mL. 3. Prostate volume 22.2 mL. Echogenic foci within the prostate are characteristic of coarse calcifications.
== END 2023-07-22 10:45 | disposition home or self-care (01) ==
LOC: HO.US 10:44
PROVIDERS: PCP Internal Medicine; Visit Provider Internal Medicine
DX: R79.89 Other specified abnormal findings of blood chemistry (principal); R35.0 Frequency of micturition
CPT/HCPCS: 76700; 76857

== ENCOUNTER → 2023-07-30 09:02 | Outpatient (REF) | payer OTHER, SELFPAY ==
--- NOTE | 2023-07-30 09:04 | CA_ITS ---
Transthoracic Echocardiogram Patient (Last, First, Middle): Ortega Vincent N Gender: Male Date of : 1970 Age: 53 Procedure Date: 07/30/2023 Procedure Type: Transthoracic Echocardiogram Location: OP Height: 185.42 cm Weight: 98.88 kg BSA: 2.23 m2 Heart Rate: bpm BP: 122 / 60 mmHg Landscaper: MARAH Referring MD: Chey Dempsey MD Infection Control Coordinator: Sánchez Marquez MD Symptoms: I48.91 - Unspecified atrial fibrillation Study Quality: Good ECG Rhythm: Sinus Conclusions: - 1. Normal LV ejection fraction 55-60% with mild LVH 2. Severe left atrial enlargement 3. Presence of closure device in the interatrial septum 4. Mild mitral regurgitation 5. Normal measured RV systolic pressure 6. Mildly dilated ascending aorta at 3.7 cm 7. No gross pericardial effusion Findings Left Ventricle Normal left ventricular cavity size. There is mildly increased left ventricular wall thickness. The left ventricular systolic function is normal. The visually estimated ejection fraction is between 55-60%. Spectral Doppler is indicative of a normal filling pattern. Right Ventricle Mildly increased right ventricular cavity size. There is normal right ventricular systolic function. Atria The left atrium is severely dilated. There is no evidence of interatrial shunt. An atrial septal closure device is seen. The right atrium is mildly dilated. Aortic Valve Normal aortic valve structure and function. There is no aortic valve stenosis. There is no aortic valve regurgitation. Mitral Valve Normal mitral valve structure and function. There is mild mitral valve regurgitation. There is no mitral valve stenosis. Pulmonic Valve The pulmonic valve is likely normal. There is trace to mild pulmonic valve regurgitation. Tricuspid Valve Normal tricuspid valve structure. There is mild tricuspid valve regurgitation. The right ventricular systolic pressure is normal. The right ventricular systolic pressure is 21 mmHg. Normal right atrial pressure. There is no evidence of pulmonary hypertension. Great Vessels The pulmonary artery was not well visualized. There is mild dilatation of the ascending aorta measuring 3.70 cm. Venous The inferior vena cava is normal in size and collapses greater than 50% with inspiration. Pericardium/Pleural There is no evidence of pericardial effusion. Prior Study Comparison No prior study available for comparison. Measurements 2D Linear Measurements IVSd: 1.24 0.6-0.9/0.6-1.0 cm LVIDd: 5.14 3.9-5.3/4.2-5.9 cm LVIDd Index: 2.30 2.4-3.2/2.2-3.1 cm/m2 LVIDs: 3.22 2.0-3.6 cm LVPWd: 1.23 0.7-1.1 cm Ao Root: 4.20 2.1-3.5 cm LA Diam: 5.20 2.7-3.8/3.0-4.0 cm LAIDs Index: 2.33 1.5-2.3 cm/m2 LV Mass: 317.11 67-162/88-224 g LV Mass Index: 142.20 43-95/49-115 g/m2 LVOT Diam: 2.40 3.0+(-)1.3 cm Mitral Valve MV Pk E: 0.78 MV PK A: 0.30 MV Decel Time: 198.00 E/A: 2.60 E'Lateral: 9.57 E'Medial: 8.70 E/E' Med: 9.00 E/E' Lat: 8.20 PHT: 58.00 MVA PHT: 3.79 Decel Cottle: 3.95 Aortic Valve AoV Pk Rashel: 1.26 AoV Mn Rashel: 0.85 AoV VTI: 0.33 AoV Pk Grad: 6.00 Aov Mn Grad: 3.00 LESVIA Cont.VTI: 2.74 LVOT LVOT Pk Rashel: 0.93 LVOT Mn Rashel: 0.57 LVOT VTI: 0.20 LVOT Pk Grad: 3.00 LVOT Mn Grad: 2.00 LVOT Diam: 2.40 LVOT Area: 4.52 Diastolic Function MV Pk E: 0.78 MV Pk A: 0.30 E/A: 2.60 E'Medial: 8.70 E/E' Med: 9.00 E' Laterial: 9.57 E/E' Lat: 8.20 Right Ventricle TAPSE (mm): 27.00 TVS' Rashel: 13.00 Tricuspid Valve TR Pk Rashel: 2.14 TR Pk Grad: 18.00 RA Press: 3.00 RVSP: 21.00 Great Vessels Aorta Ao Root-2D: 4.20 2.0-3.7 cm Ao Asc: 3.70 2.1-3.4 cm Pulmonary Valve PV Pk Rashel: 1.01 Peak PV Grad: 4.00 Updated in Other Vendor System with Status of Final Sánchez Marquez MD electronically signed on 07/31/2023 3:06:00 PM with status of Final
== END ==
LOC: HO.CARD 09:02
PROVIDERS: PCP Internal Medicine; Visit Provider Internal Medicine
DX: I48.91 Unspecified atrial fibrillation (principal)
CPT/HCPCS: 93306

== ENCOUNTER → 2023-07-30 09:04 | Outpatient (BNV) | payer OTHER, SELFPAY | PROVIDERS: PCP Internal Medicine; Visit Provider Internal Medicine Cardiovascular Disease | DX: I34.0 Nonrheumatic mitral (valve) insufficiency (principal); I36.1 Nonrheumatic tricuspid (valve) insufficiency | CPT/HCPCS: 93306 ==

== ENCOUNTER 2023-09-17 08:31 | Outpatient (AMB) | payer OTHER, SELFPAY ==
--- NOTE | 2023-09-17 08:38 | A.OFFVIS_ITS ---
Vital Signs 09/17/23 08:46 Height 6 ft 1.5 in Weight 222 lb BMI 28.9 BP 120/82 Blood Pressure Location Lt brachial Position Sitting Pulse 77 Intake Visit Reasons: Colonoscopy Screening Intake Note: Patient new consult for 2nd pre Colonoscopy. Patient cc: acid reflex with some burning sensation on and off, and hemorrhoids. 1st Colonoscopy was in [place] years ago and was normal. Survey Methodologist Required: No Accompanied by: Self / Same As Patient Allergies No Known Allergies [No Known Allergies*] Allergy (Verified 09/17/23 08:38) HPI HPI Colonoscopy Screening: Details: 53 year old? male is here today for pre colonoscopy screening.? Patient was sent to us by his PCP.? First colonoscopy few years ago in [place]. Patient denies any gastrointestinal symptoms in the past or at present.? However patient does report that he suffers with hemorrhoids at times. Once to treat hemorrhoids naturally. Tried with Janet in the past but it was not working. Occasional acid reflux, however that depends on what he eats. Acid reflux mild this morning. Patient admits to eating late at night last night. Denies any personal or family history of gastrointestinal disease, colon polyps, or cancer.? Denies history of difficulty with sedation or anesthesia in the past.? Negative for history of sleep apnea.? Denies any history of cardiac, renal, pulmonary, or hepatic disease.?? No history of infectious? diseases like hepatitis A, B, C, HIV or tuberculosis.? Patient is not on any anticoagulation t herapy. [facility] Medical History (Updated 07/02/23 @ 11:01 by Chey Dempsey MD) Vision changes Nasal fracture Recurrent bilateral inguinal hernia (BIH) Morbid (severe) obesity due to excess calories Right inguinal hernia Laboratory examination ordered as part of a routine general medical examination Close exposure to 2019 novel coronavirus Surgical History Inguinal hernia bilateral, non-recurrent History of bilateral inguinal hernia repair (08/23/22) H/O colonoscopy History of cardiac radiofrequency ablation Family History Paternal Uncle Lung cancer Social History Household Members: Spouse and Children Housing: Apartment Alcohol intake: current Alcohol intake frequency: holidays/special occasions only Comment: 4x a week 2 glasses Patient Tobacco Use Status: Former Tobacco user Quit Date: 2001 Tobacco use type: Cigarette Years Smoked: 1999 quit service: No Current occupational status: employed Cognitive needs: No Hearing needs: No Vision needs: No Review of Systems Const Denies weight gain and Denies weight loss ENT Reports no additional complaints, Denies dysphagia and Denies odynophagia Card Reports no additional complaints Resp Reports no additional complaints GI Denies abdominal pain, Denies belching, Denies melena, Denies bloating, Denies change in bowel habits, Denies dysphagia, Denies excessive flatus, Denies dyspepsia, Reports heartburn (Occasional), Denies diarrhea, Denies loose stools, Denies nausea, Denies odynophagia, Denies vomiting and Reports other (Hemorrhoids) Reports no additional complaints Musc Reports no additional complaints Neuro Reports no additional complaints Psych Reports no additional complaints Endo Reports no additional complaints Physical Exam Const General: healthy appearing and no acute distress Nutritional Appearance: obese Orientation/consciousness: patient oriented x3 Resp Effort & Inspection: normal respiratory effort, able to speak in complete sentences, no tracheal deviation and symmetric chest movement Auscultation: clear to auscultation bilaterally Cardio Rate: regular rate GI Inspection: Yes normal to inspection, No distended and Yes obesity Palpation (GI): Soft to palpation, not firm, nontender and No hepatosplenomegaly present Auscultation: normal bowel sounds General: Yes no CVA tenderness Back/Spine/Pelvis Back: no CVA tenderness Skin General skin exam: elasticity normal, turgor normal and dry skin Neuro General: patient oriented x3 Psych Appearance: grossly normal Mental Status: mental status grossly normal Assessment & Plan Assessment & Plan (1) Colon cancer screening: Code(s): Z12.11 - Encounter for screening for malignant neoplasm of colon Category: Medical Plan Patient denies any GI, cardiac or respiratory symptoms. ?Occasional acid reflux. Patient has hemorrhoids. Patient can try which Janet and Sitz baths. History of ablation several years ago for AFib. Patient had echo last month that was normal, normal EF. AFib was not seen. Denies any issues with anesthesia in the past.? Denies any history of sleep apnea.? No history infectious diseases in the past or present.? Not on any anticoagulation therapy.? No family or personal history of colon cancer or polyps.? Patient denies melena, hematochezia, unintentional weight loss or ribbon like stools.? Discussed at length the pre- procedure,? prep, diet & medications as well as what to expect prior, during and after the procedure.?? Stressed the importance of good bowel prep. ?Recommended the use of Vaseline or Calmoseptine OTC & baby wipes with bowel movements to promote comfort.? ?Patient verbalizes understanding and agrees to plan of care.? She was given the opportunity to ask questions and all questions answered.? We will see her after the procedure.? Medications: New bisacodyl (Dulcolax (bisacodyl)) take 4 tabs at noon the day before your colonoscopy 20 mg (4 x 5 mg) PO ONCE 1 day 4 tabs 0RF Z12.11 - Encounter for screening for malignant neoplasm of colon magnesium citrate Drink one bottle at 17:00 and 2nd bottle at 22:00 296 mL PO ONCE 296 mL 1RF Z12.11 - Encounter for screening for malignant neoplasm of colon Coding Level of Care Code New Pt Level 3 (60735) Diagnoses Colon cancer screening Z12.11 Time Spent (min) 40 Comment 30 minutes spent with patient and additional 10 minutes spent reviewing his records
[2023-09-17 08:46] VITALS: BP 120/82; PULSE 77; BMI 28.9
== END 2023-09-17 09:38 | disposition home or self-care (01) ==
PROVIDERS: PCP Internal Medicine; Visit Provider Nurse Practitioner Family
DX: Z12.11 Encounter for screening for malignant neoplasm of colon (principal); Z01.818 Encounter for other preprocedural examination
CPT/HCPCS: 99203

== ENCOUNTER → 2023-09-17 08:31 | Outpatient (BNVA) | payer OTHER, SELFPAY | PROVIDERS: PCP Internal Medicine; Visit Provider Nurse Practitioner Family | DX: Z12.11 Encounter for screening for malignant neoplasm of colon (principal) | CPT/HCPCS: 99202 ==

== ENCOUNTER 2023-09-30 13:25 | Outpatient (REF) | payer OTHER, SELFPAY ==
--- NOTE | 2023-09-30 13:32 | ECG_ITS ---
Test Reason : I48.91 Blood Pressure : / mmHG Vent. Rate : 064 BPM Atrial Rate : 064 BPM P-R Int : 162 ms QRS Dur : 106 ms QT Int : 402 ms P-R-T Axes : 073 053 051 degrees QTc Int : 414 ms Normal sinus rhythm Normal ECG No previous ECGs available Referred By: Chey Dempsey Electronically Signed By:JEREMY HUFFMAN MD
[2023-09-30 13:45] LABS: MANUAL DIFF FLAG NO
[2023-09-30 14:18] LABS: Basophils Percent Auto 0.6 % (0-2); Eosinophils Absolute Auto 0.1 X10*3/uL (0.0-0.4); Eosinophils Percent Auto 0.9 % (0-4); Hematocrit 41.9 % (42.0-52.0); Hemoglobin 14.9 g/dl (14.0-18.0); Imm Gran Abs Auto 0.04 X10*3/uL (0.00-0.03); Imm Gran Pct Auto 0.6 % (0.0-0.4); Lymphocytes Absolute Auto 1.1 X10*3/uL (1.2-4.9); Lymphocytes Percent Auto 15.9 % (20-40); Mean Corpuscular HGB Conc 35.6 g/dl (31.0-36.0); Mean Corpuscular Hemoglobin 32.5 pg (27.0-33.0); Mean Corpuscular Volume 91.5 fL (80.0-98.0); Mean Platelet Volume 9.8 fL (9.4-12.4); Monocytes Absolute Auto 0.5 X10*3/uL (0.1-1.2); Monocytes Percent Auto 7.1 % (2-11); Neutrophils Absolute Auto 5.1 x10*3/uL (2.0-8.3); Neutrophils Percent Auto 74.9 % (45-73); Platelet Count 210 X10*3/uL (160-400); Red Blood Count 4.58 X10*6/uL (4.60-5.80); White Blood Count 6.9 X10*3/uL (4.8-10.8)
[2023-09-30 15:05] LABS: Alanine Aminotransferase 30 U/L (0-40); Albumin Level 4.2 g/dL (3.5-5.0); Alkaline Phosphatase 58 U/L (39-117); Anion Gap 12 (12-20); Aspartate Amino Transferase 19 U/L (5-37); Bilirubin Total 0.8 mg/dL (0.0-1.0); Blood Urea Nitrogen 12 mg/dL (9-16); Calcium 9.2 mg/dL (8.4-10.2); Carbon Dioxide 26 mmol/L (22-29); Chloride 102 mmol/L (96-108); Cholesterol 186 mg/dL (<200); Estimated Glomerular Filt Rate > 60; Glucose Random 84 mg/dL (60-115); HDL Cholesterol 44 mg/dL (>40); LDL Cholesterol Calculated 107 mg/dL (<100); Potassium 3.6 mmol/L (3.3-5.1); Sodium 136 mmol/L (135-145); Triglycerides 175 mg/dL (<150)
[2023-09-30 15:26] LABS: Free T4 (Free Thyroxine) 0.82 ng/dL (0.71-1.85); Thyroid Stimulating Hormone 1.48 uIU/mL (0.32-4.0)
[2023-09-30 15:30] LABS: Prostate Specific Antigen Scr 1.07 ng/mL (<0.05-4.0); Vitamin B12 417 pg/mL (200-900)
[2023-10-01 08:42] LABS: HBS Num1 0.68 mIU/mL (0-7.99); HBc Num1 0.08 S/CO (0.00-0.79); HBsAGNum1 0.33 S/CO (0.00-0.99); Hepatitis B Core Antibody Nonreactive (Nonreactive); Hepatitis B Surface Antigen Negative (Negative); ~HepC Num1 0.15 S/CO (0.00-0.79); ~Hepatitis B Surface Antibody NONREACTIVE (Nonreactive); ~Hepatitis C Antibody Nonreactive (Nonreactive)
== END 2023-09-30 13:26 | disposition home or self-care (01) ==
LOC: HO.LAB 13:25
PROVIDERS: PCP Internal Medicine; Visit Provider Internal Medicine
DX: R79.89 Other specified abnormal findings of blood chemistry (principal); I48.91 Unspecified atrial fibrillation; E78.00 Pure hypercholesterolemia, unspecified
CPT/HCPCS: 36415; 80053; 80061; 82607; 82746; 84153; 84439; 84443; 85025; 86704; 86706; 86803; 87340; 93005

== ENCOUNTER → 2023-09-30 13:32 | Outpatient (BNV) | payer OTHER, SELFPAY | PROVIDERS: PCP Internal Medicine; Visit Provider Internal Medicine Cardiovascular Disease | DX: I48.91 Unspecified atrial fibrillation (principal) | CPT/HCPCS: 93010 ==

== ENCOUNTER 2023-10-04 14:41 | Outpatient (AMB) | payer OTHER, SELFPAY ==
[2023-10-04 14:42] VITALS: BP 124/82; PULSE 75; O2SAT 98; BMI 28.8
--- NOTE | 2023-10-04 14:42 | A.OFFPC_ITS ---
Vital Signs 10/04/23 14:42 Height 6 ft 1.5 in Weight 221 lb BMI 28.8 BP 124/82 Blood Pressure Location Lt brachial Position Sitting Pulse 75 Pulse Source Pulse Oximeter Pulse Oximetry (%) 98 Oxygen Delivery Method Room Air Intake Visit Reasons: 2 month f/u Financial Services Counselor Required: No Allergies No Known Allergies [No Known Allergies*] Allergy (Verified 10/04/23 14:43) Tobacco use date assessed: 10/04/23 Dental Screening Dental Screen Date: 07/02/23 Did you have a dental visit in the last 12 months?: Yes Did you have a dental problem in the last 6 months where you did not have access to dental care?: No Was dental information given to patient?: Patient has dentist HPI 2 month f/u HPI Details 53-year-old overweight male with hyperch olesterolemia bladder outlet obstruction atrial fibrillation last seen in June 2023. Noted to have an elevated blood pressure before and advised to monitor. Patient was reminded to have the colon test also this year. 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 [facility] Medical History (Updated 10/04/23 @ 15:17 by Chey Dempsey MD) Obesity (BMI 30.0-34.9) Urinary hesitancy LFT elevation Vision changes Nasal fracture Recurrent bilateral inguinal hernia (BIH) Morbid (severe) obesity due to excess calories Right inguinal hernia Laboratory examination ordered as part of a routine general medical examination Close exposure to 2019 novel coronavirus Surgical History Inguinal hernia bilateral, non-recurrent History of bilateral inguinal hernia repair (08/23/22) H/O colonoscopy History of cardiac radiofrequency ablation Family History Paternal Uncle Lung cancer Social History Household Members: Spouse and Children Housing: Apartment Alcohol intake: current Alcohol intake frequency: holidays/special occasions only Comment: 4x a week 2 glasses Patient Tobacco Use Status: Former Tobacco user Quit Date: 2001 Tobacco use type: Cigarette Years Smoked: 1999 quit service: No Current occupational status: employed Cognitive needs: No Hearing needs: No Vision needs: No Questionnaire Thrive Questionnaire Date Thrive assessed: 10/04/23 I am a: Patient What is your living situation today?: I have a steady place to live Within the past 12 months, did the food you bought not last and you didn't have the money to get more?: Never true Within the past 12 months, did you worry whether your food would run out before you got money to buy more?: Never true Do you have trouble paying for medicines?: No Do you have trouble getting transportation to medical appointments?: No Do you have trouble paying your heating and electricity bill?: No Do you have trouble taking care of your child, family member or friend?: No Do you have trouble with day-to-day activities such as bathing, preparing meals, shopping, managing finances, etc.?: No Are you currently unemployed and looking for a job?: No Are you interested in more education?: No Please select the resources that you would like help with: None THRIVE Score: 0 AUDIT C Alcohol Use Questionnaire (AUDIT-C) 1. How often do you have a drink containing alcohol?: 4 or more times a week 2. How many drinks containing alcohol do you have on a typical day when you are drinking?: 1 or 2 3. How often do you have six or more drinks on one occasion?: Never Total Score: 4 MANJINDER-7 AMB Questionnaire MANJINDER-7 Date MANJINDER - 7 assessed: 10/04/23 Source: Developed by Drs. Enrike Parrish, Nancy Pham, Ajit Waggoner and colleagues, with an educational amelie from [employer]. Physical exam (Primary Care) Vital Signs: Last Vital Signs Pulse 75 10/04/23 14:42 BP 124/82 10/04/23 14:42 Pulse Ox 98 10/04/23 14:42 Oxygen Delivery Method Room Air 10/04/23 14:42 BMI result Body Mass Index 28.8 Tobacco/Smoking Status: Tobacco use Status Tobacco use date assessed 10/04/23 10/04/23 14:43 Patient Tobacco Use Status Former Tobacco user 10/04/23 14:43 Tobacco use type Cigarette 10/04/23 14:43 Thrive Assessment: Date of Thrive Assessment Date Thrive assessed 10/04/23 10/04/23 14:43 Const General: alert; No acute distress Eyes Conjunctivae: conjunctivae normal Resp Auscultation: clear to auscultation bilaterally Cardio Rate: regular rate Rhythm: regular rhythm GI Inspection: Yes normal to inspection Extrem General: Yes normal to inspection and No edema Assessment and Plan Assessment & Plan (1) Elevated blood pressure reading without diagnosis of hypertension: Code(s): R03.0 - Elevated blood-pressure reading, without diagnosis of hypertension Plan: Blood pressure follow-up is normal with no medication. (2) Hypertriglyceridemia: Code(s): E78.1 - Pure hyperglyceridemia Plan: Avoid fried foods, chicken skin, eggs, butter margarine, pastries and meat. Be it pork or beef they have a lot of cholesterol LDL goal of less than 130 and triglyceride of less than 150. Will continue to monitor for now (3) Fatty liver: Comment: With splenomegaly August 2023 Code(s): K76.0 - Fatty (change of) liver, not elsewhere classified Plan: Low-fat diet and exercise (4) Overweight (BMI 25.0-29.9): Code(s): E66.3 - Overweight Plan: Diet and exercise (5) Ascending aorta dilatation: Comment: 07/2023 3.7 cm Code(s): I77.810 - Thoracic aortic ectasia Plan: July 2023 last echocardiogram will follow-up in 1 year Coding Level of Care Code Est Pt Level 4 (87535) Diagnoses Elevated blood pressure reading without diagnosis of hypertension R03.0 Hypertriglyceridemia E78.1 Fatty liver K76.0 Overweight (BMI 25.0-29.9) E66.3 Ascending aorta dilatation I77.810
== END 2023-10-04 17:24 | disposition home or self-care (01) ==
PROVIDERS: PCP Internal Medicine; Visit Provider Internal Medicine
DX: R03.0 Elevated blood-pressure reading, without diagnosis of hypertension (principal); I77.810 Thoracic aortic ectasia; E78.1 Pure hyperglyceridemia; K76.0 Fatty (change of) liver, not elsewhere classified; E66.3 Overweight
CPT/HCPCS: 99214

== ENCOUNTER 2024-01-24 09:04 | Outpatient (AMB) | payer OTHER, SELFPAY ==
--- NOTE | 2024-01-24 09:06 | MHC.PC.OV ---
Vital Signs 01/24/24 09:08 Height 6 ft 1.5 in Weight 227 lb BMI 29.5 BP 120/78 Blood Pressure Location Lt brachial Position Sitting Pulse 79 Pulse Source Pulse Oximeter Pulse Oximetry (%) 98 Oxygen Delivery Method Room Air Intake Visit Reasons: Annual Exam Intake Note: Patient is here today for a physical. Incendiary Powder Mixer Required: No Painter Ordnance: Not Required per policy Accompanied by: Self / Same As Patient Allergies No Known Allergies [No Known Allergies*] Allergy (Verified 01/24/24 09:08) Medication List - Last Reconciled 01/24/24 by Chey Dempsey MD bisacodyl (Dulcolax (bisacodyl)) 20 mg (4 x 5 mg) PO ONCE 1 day magnesium citrate 296 mL PO ONCE Tobacco use date assessed: 01/24/24 Dental Screening Dental Screen Date: 07/02/23 HPI Annual Exam HPI Details 53-year-old overweight male(noted 6 lb weight gain) with hypertriglyceridemia fatty liver and ascending aorta dilatation last seen in September 2023. Patient's last echocardiogram was done in July 2023 with an ascending aorta of 3.7. february colon test. occ chest pain PFSH Medical History (Updated 01/24/24 @ 09:52 by Chey Dempsey MD) Obesity (BMI 30.0-34.9) Urinary hesitancy LFT elevation Vision changes Nasal fracture Recurrent bilateral inguinal hernia (BIH) Morbid (severe) obesity due to excess calories Right inguinal hernia Laboratory examination ordered as part of a routine general medical examination Close exposure to 2019 novel coronavirus Surgical History Inguinal hernia bilateral, non-recurrent History of bilateral inguinal hernia repair (08/23/22) H/O colonoscopy History of cardiac radiofrequency ablation Family History (Updated 01/24/24 @ 09:07 by KRISTIN Villa) Paternal Uncle Lung cancer Social History (Updated 01/24/24 @ 09:34 by Chey Dempsey MD) Household Members: Spouse and Children Housing: Apartment Alcohol intake: current Alcohol intake frequency: holidays/special occasions only Comment: 4x a week 2 glasses Patient Tobacco Use Status: Former Tobacco user Tobacco use type: Cigarette Years Smoked: 1999 quit oral cannabis e-Cigarette/Vaping Use: Never Used Second Hand Smoke Exposure: No service: No Current occupational status: employed Cognitive needs: No Hearing needs: No Vision needs: No Questionnaire PHQ-9 Over the last 2 weeks, how often have you been bothered by any of the following problems? 1. Little interest or pleasure in doing things: not at all 2. Feeling down, depressed, or hopeless: not at all 3. Trouble falling or staying asleep, or sleeping too much: several days 4. Feeling tired or having little energy: several days 5. Poor appetite or overeating: not at all 6. Feeling bad about yourself - or that you are a failure or have let yourself or your family down: not at all 7. Trouble concentrating on things, such as reading the newspaper or watching television: not at all 8. Moving or speaking so slowly that other people could have noticed. Or the opposite - being so fidgety or restless that you have been moving around a lot more than usual: not at all 9. Thoughts that you would be better off or of hurting yourself in some way: not at all Total score: 2 Depression Screening Interpretation: Positive Depression Screening Done: Yes Source: Developed by Drs. Enrike Parrish, Nancy Pham, Ajit Waggoner and colleagues, with an educational amelie from [employer]. Thrive Questionnaire Date Thrive assessed: 10/04/23 I am a: Patient What is your living situation today?: I have a steady place to live Within the past 12 months, did the food you bought not last and you didn't have the money to get more?: Never true Within the past 12 months, did you worry whether your food would run out before you got money to buy more?: I choose not to answer this question Do you have trouble paying for medicines?: I choose not to answer this question Do you have trouble getting transportation to medical appointments?: No Do you have trouble paying your heating and electricity bill?: Yes Do you have trouble taking care of your child, family member or friend?: No Do you have trouble with day-to-day activities such as bathing, preparing meals, shopping, managing finances, etc.?: No Are you currently unemployed and looking for a job?: No Are you interested in more education?: No Please select the resources that you would like help with: None Currently or been in a relationship where the following occur: No concerns reported THRIVE Score: 1 AUDIT C Alcohol Use Questionnaire (AUDIT-C) 1. How often do you have a drink containing alcohol?: 2-3 times a week 2. How many drinks containing alcohol do you have on a typical day when you are drinking?: 1 or 2 3. How often do you have six or more drinks on one occasion?: Monthly Total Score: 5 MANJINDER-7 AMB Questionnaire MANJINDER-7 Date MANJINDER - 7 assessed: 01/24/24 Feeling nervous, anxious, or on edge: 0 = Not at all Not being able to stop or control worryin = Not at all Worrying too much about different things: 0 = Not at all Trouble relaxin = Not at all Being so restless that it is hard to sit still: 0 = Not at all Becoming easily annoyed or irritable: 0 = Not at all Feeling afraid as if something awful might happen: 0 = Not at all Total MANJINDER-7 score (0-4 normal; 5-9 mild; 10-14 moderate; 15-21 severe): 0 Source: Developed by Drs. Enrike Parrish, Nancy Pham, Ajit Waggoner and colleagues, with an educational amelie from [employer]. Review of Systems Const Denies poor appetite and Denies weakness Eyes Denies no additional complaints ENT Reports Normal hearing present, Denies dizziness, Denies nasal congestion, Denies tinnitus and Denies sore throat Card Denies chest pain, Denies syncope, Denies rapid heart rate and Denies dyspnea Resp Denies cough and Denies dyspnea GI Denies change in stool character, Reports constipation, Denies diarrhea, Denies nausea and Denies vomiting Denies dysuria and Denies urinary frequency Neuro Reports Normal hearing present, Denies confusion, Denies dizziness, Denies syncope and Denies weakness Psych Denies confusion Physical exam (Primary Care) Vital Signs: Last Vital Signs Pulse 79 01/24/24 09:08 BP 120/78 01/24/24 09:08 Pulse Ox 98 01/24/24 09:08 Oxygen Delivery Method Room Air 01/24/24 09:08 BMI result Body Mass Index 29.5 Tobacco/Smoking Status: Tobacco use Status Tobacco use date assessed 01/24/24 01/24/24 09:12 Patient Tobacco Use Status Former Tobacco user 01/24/24 09:12 Tobacco use type Cigarette 01/24/24 09:12 e-Cigarette/Vaping Use Never Used 01/24/24 09:12 PHQ-9: PHQ-9 Score PHQ-9: Total score 2 01/24/24 09:12 Depression Screening Interpretation: Positive Thrive Assessment: Date of Thrive Assessment Date Thrive assessed 10/04/23 01/24/24 09:12 Currently or been in a relationship where the following occur: No concerns reported Const General: No confusion Orientation/consciousness: No confusion HENMT Head: Yes normocephalic Ears: external ears normal and TM's normal bilaterally Face and sinus: Yes normal facial exam Mouth: moist mucous membranes Throat: Yes tonsils normal Eyes Conjunctivae: conjunctivae normal Pupils: Equal, round and reactive pupils present and Pupil accommodation reflex normal Direct Ophthalmoscopy: normal light reflex Neck Neck: No lymphadenopathy Thyroid: Thyroid normal Chest Chest palpation & inspection: normal inspection of the chest Resp Effort & Inspection: normal respiratory effort and no audible wheezes Auscultation: clear to auscultation bilaterally, no crackles, no wheezes and lung sounds not diminished Cardio Rate: regular rate Rhythm: regular rhythm Peripheral pulses: radial pulses present and dorsalis pedis present GI Palpation (GI): no masses Auscultation: normal bowel sounds and normoactive bowel sounds Rectal Exam - Male: Yes deferred Skin General skin exam: no rashes or lesions noted Rashes: no rashes Neuro General: No confusion Cranial nerves: Yes Equal, round and reactive pupils present and Yes Normal hearing present Cognition (Neuro): normal cognition Gait exam (Neuro): Normal gait present Motor exam (neuro): 5/5 motor strength present throughout Deep tendon reflexes (DTR's): Right brachioradialis reflex intensity grade: 2+, Left brachioradialis reflex intensity grade: 2+, Right patellar reflex intensity grade: 2+ and Left patellar reflex intensity grade: 2+ Extrem General: No edema Assessment and Plan Assessment & Plan (1) Annual physical exam: Code(s): Z00.00 - Encounter for general adult medical examination without abnormal findings Plan: Patient is advised to eat healthy, keep well hydrated, keep active and have adequate sleep. (2) Hypertriglyceridemia: Code(s): E78.1 - Pure hyperglyceridemia Plan: Avoid fried foods, chicken skin, eggs, butter margarine, pastries and meat. Be it pork or beef they have a lot of cholesterol LDL goal of less than 130 and triglyceride of less than 150. (3) Atrial fibrillation: Comment: Ablation 2009 Code(s): I48.91 - Unspecified atrial fibrillation Plan: Stable (4) Fatty liver: Comment: With splenomegaly August 2023 Code(s): K76.0 - Fatty (change of) liver, not elsewhere classified Plan: Low-fat diet and exercise (5) Shoulder pain, right: Code(s): M25.511 - Pain in right shoulder Orders: Orders XR shoulder RT min 2V Today M25.511 - Pain in right shoulder PT Evaluation and Treatment Today M25.511 - Pain in right shoulder Coding Level of Care Code Est Pt Prev Care 40-64y(29041) Diagnoses Annual physical exam Z00.00 Hypertriglyceridemia E78.1 Atrial fibrillation I48.91 Fatty liver K76.0 Shoulder pain, right M25.511
[2024-01-24 09:08] VITALS: BP 120/78; PULSE 79; O2SAT 98; BMI 29.5
== END 2024-01-24 10:06 | disposition home or self-care (01) ==
PROVIDERS: PCP Internal Medicine; Visit Provider Internal Medicine
DX: Z00.00 Encounter for general adult medical examination without abnormal findings (principal); E78.1 Pure hyperglyceridemia; I48.91 Unspecified atrial fibrillation; K76.0 Fatty (change of) liver, not elsewhere classified; M25.511 Pain in right shoulder
CPT/HCPCS: 99396

== ENCOUNTER 2024-03-30 07:28 | Day surgery (SDC) | payer OTHER, SELFPAY ==
[2024-03-26 10:40] VITALS: BMI 29.5
--- NOTE | 2024-03-27 12:05 | HO.ANESPROP2 ---
Documented by User: Ema August NP 03/27/24 12:05 HPI - Anesthesia Eval Consult details Narrative: 53yo M for Colonoscopy PMFSH Active Problems Active Problems: All Active Problems Shoulder pain, right (Acute) Annual physical exam (Acute) Ascending aorta dilatation (Acute) Overweight (BMI 25.0-29.9) (Acute) Fatty liver (Acute) Frequency of micturition (Acute) Colon cancer screening (Acute) Atrial fibrillation (Acute) Bladder outlet obstruction (Acute) Suture granuloma (Acute) Hypertriglyceridemia (Acute) Elevated blood pressure reading without diagnosis of hypertension (Acute) Vision changes (Acute) Past Medical History Medical History Hypertriglyceridemia Ascending aorta dilatation Fatty liver Vision changes LFT elevation Nasal fracture Obesity (BMI 30.0-34.9) Urinary hesitancy Morbid (severe) obesity due to excess calories Family History Family History Paternal Uncle Lung cancer Family history of problems with anesthesia: No Surgical History Surgical History History of bilateral inguinal hernia repair (08/23/22) H/O colonoscopy History of cardiac radiofrequency ablation History of Problems with Anesthesia: No Social History Social History (Updated 01/24/24 @ 09:34 by Chey Dempsey MD) Household Members: Spouse and Children Housing: Apartment Are you a primary healthcare administration internship to a significant other at home: No Do you presently have visiting nurse or other home services: No Alcohol intake: current Alcohol intake frequency: holidays/special occasions only Comment: 4x a week 2 glasses Patient Tobacco Use Status: Former Tobacco user Tobacco use type: Cigarette Years Smoked: 1999 quit oral cannabis e-Cigarette/Vaping Use: Never Used Second Hand Smoke Exposure: No Substance Use Frequency: Occasionally Have you been hit, kicked, punched, or otherwise hurt by someone within the past year? If so, by whom?: No Are you DNR?: No Advance Directives: No Advance Directives Information Provided: Yes Recently lost weight without trying: No Nutrition Risks: No Nutritional Risk Poor oral hygiene: No service: No Current occupational status: employed Cognitive needs: No Hearing needs: No Vision needs: No Meds Allergies Allergy/AdvReac Type Severity Reaction Status Date / Time No Known Allergies Allergy Verified 03/30/24 08:05 [No Known Allergies*] Home Medications ?Medication ?Instructions ?Recorded ?Confirmed ?Last Taken ?Type No Known Home Meds 03/30/24 03/30/24 Unknown History Exam Height,Weight and Vital Signs: Height 6 ft 1.5 in Weight 102.965 kg Narrative Narrative: ECHO 2023 Conclusions: - 1. Normal LV ejection fraction 55-60% with mild LVH 2. Severe left atrial enlargement 3. Presence of closure device in the interatrial septum 4. Mild mitral regurgitation 5. Normal measured RV systolic pressure 6. Mildly dilated ascending aorta at 3.7 cm 7. No gross pericardial effusion EKG 2023 Vent. Rate : 064 BPM Atrial Rate : 064 BPM P-R Int : 162 ms QRS Dur : 106 ms QT Int : 402 ms P-R-T Axes : 073 053 051 degrees QTc Int : 414 ms Normal sinus rhythm Normal ECG No previous ECGs available Assessment and Plan Assessment Anesthesia Assessment: Chart Reviewed Final Anesthetic Review Family History of Problems with Anesthesia: No History of Problems with Anesthesia: No Documented by User: Wanda Jones MD 03/30/24 08:08 COUNTS INCLUDE 234 BEDS AT THE [facility] Past Medical History Medical History Hypertriglyceridemia Ascending aorta dilatation Fatty liver Vision changes LFT elevation Nasal fracture Obesity (BMI 30.0-34.9) Urinary hesitancy Morbid (severe) obesity due to excess calories Family History Family History Paternal Uncle Lung cancer Surgical History Surgical History History of bilateral inguinal hernia repair (08/23/22) H/O colonoscopy History of cardiac radiofrequency ablation Social History Social History (Updated 01/24/24 @ 09:34 by Chey Dempsey MD) Household Members: Spouse and Children Housing: Apartment Are you a primary healthcare administration internship to a significant other at home: No Do you presently have visiting nurse or other home services: No Alcohol intake: current Alcohol intake frequency: holidays/special occasions only Comment: 4x a week 2 glasses Patient Tobacco Use Status: Former Tobacco user Tobacco use type: Cigarette Years Smoked: 1999 quit oral cannabis e-Cigarette/Vaping Use: Never Used Second Hand Smoke Exposure: No Substance Use Frequency: Occasionally Have you been hit, kicked, punched, or otherwise hurt by someone within the past year? If so, by whom?: No Are you DNR?: No Advance Directives: No Advance Directives Information Provided: Yes Recently lost weight without trying: No Nutrition Risks: No Nutritional Risk Poor oral hygiene: No service: No Current occupational status: employed Cognitive needs: No Hearing needs: No Vision needs: No Meds Allergies Allergy/AdvReac Type Severity Reaction Status Date / Time No Known Allergies Allergy Verified 03/30/24 08:05 [No Known Allergies*] Home Medications ?Medication ?Instructions ?Recorded ?Confirmed ?Last Taken ?Type No Known Home Meds 03/30/24 03/30/24 Unknown History Exam Airway Mallampati Class: II (cap top right front tooth) TM Dist: >3cm Neck ROM: Full Heart: rrr Lungs: cta Assessment and Plan Assessment Anesthesia Assessment: Anesthesia Plan Discussed Final Anesthetic Review NPO: Yes ASA Class: II Final Preanesthetic Review: No Changes in Pt Med Stat, Meds/Allgs Chart Reviewed and Consent Obtained/Reviewed Patient Risk: Low Procedure Risk: Low Anesthetic Plan Anesthetic Plan: MAC: Disposition: Standard PACU
--- NOTE | 2024-03-30 07:39 | MHC.SHP ---
Pre-Procedural Eval Section A - 24 Hr Update-Section A only Date of Service: 03/30/24 The patient is an INPATIENT: No The patient has been examined within 24 hours of the surgical procedure. The History & Physical has been completed within 30 days and I have reviewed it.: No Section B - Complete if H&P > 30 days Chief Complaint: Colon cancer screening Relevant Family History (Specify if Yes): No Relevant Social History: Tobacco Use (Former smoker) Present Medications: see Short Stay Collaborative assessment Medical History: Significant History (Nasal fracture Recurrent bilateral inguinal hernia (BIH) Morbid (severe) obesity due to excess calories Right inguinal hernia) History of Previous Operations: Relevant previous surgery/procedure and date(s) (Inguinal hernia bilateral, non-recurrent History of bilateral inguinal hernia repair (08/23/22) H/O colonoscopy History of cardiac radiofrequency ablation) Allergies: Allergies Allergy/AdvReac Type Severity Reaction Status Date / Time No Known Allergies Allergy Verified 01/24/24 09:08 [No Known Allergies*] Review of Systems Sugical H&P ROS: Negative: Constitution, Cardiovascular, Respiratory and Gastrointestinal Exam Surgical H&P Exam: Normal: Heart, Normal: Lungs, Normal: Extremities and Normal: Abdomen Plan Diagnosis/Plan: Unchanged I have reviewed the history and physical and performed a pertinent physical examination on my patient. No changes have occurred unless specified. Time Spent With Patient Time: Total time managing care of this patient today ____ minutes.
[2024-03-30 07:48] VITALS: BMI 29.5
[2024-03-30] MEDS: Lactated Ringers 1,000 ML 100 ML IVCONT (07:55)
[2024-03-30 08:04] VITALS: BP 145/96; PULSE 67; RESP 18; TEMP 36.7; O2SAT 95
--- NOTE | 2024-03-30 08:59 | P.OPN-COLO_ITS ---
Colonoscopy Operative Note Operative Note Date of Service: 03/30/24 Narrative: COLONOSCOPY TILL CECUM WITH BIOPSIES AND SNARE POLYPECTOMY Pre-op diagnosis: Colon cancer screening (2nd colon - 1st colonoscopy negative 10 - 12 years ago). Post-op diagnosis:? Colon polyps, hemorrhoids Endoscopist:Tabitha Egan MD Anesthesia:?MAC Consent: Indications for the procedure and potential complications of bleeding, perforation, reaction to medications and missed diagnosis were discussed with the patient and informed consent was obtained. Instrument: Olympus CF H 190 L variable stiffness adult colonoscope Monitoring: Vital signs and clinical assessment, intermittent blood pressure monitoring, continuous EKG monitoring, Pulse oximetry and Carbon Dioxide monitoring were done throughout the procedure. Please see anesthesia flowsheet. Colon withdrawl time was 18 minutes. Procedure: The patient was placed in the left lateral decubitis position and pre-procedure medications were administered. After a digital rectal examination of the ano-rectum, the video colonoscope was inserted into the rectum and advanced through the colon to the cecum. The colonoscope was slowly withdrawn in a retrograde panoramic fashion and the colon mucosa was carefully examined including a retroflexed view of the rectum. Findings and interventions are described below. Procedure Difficulty: without difficulty Findings: Terminal Ileum: Not evaluated Cecum: A 10-12 mm sessile polyp - removed with a hot snare Ascending Colon: A 10-12 mm sessile polyp in the distal ascending colon - removed with a hot snare Transverse Colon: Normal Descending Colon: A 2-3 mm sessile polyp - removed with a cold biopsy Sigmoid Colon: A 10-12 mm sessile polyp - removed with a hot snare and polyp was not retrieved Rectum: Normal Ano-rectum: Moderate internal hemorrhoids Colon preparation: Good after some irrigation. [facility] Bowel Preparation Scale Right colon; 2 Transverse colon: 2 Left colon; 2 (0 = Unprepared colon segment with mucosa not seen due to solid stool that cannot be cleared. 1 = Portion of mucosa of the colon segment seen, but other areas of the colon segment not well seen due to staining, residual stool and/or opaque liquid. 2 = Minor amount of residual staining, small fragments of stool and/or opaque liquid, but mucosa of colon segment seen well. 3 = Entire mucosa of colon segment seen well with no residual staining, small fragments of stool or opaque liquid) Impression and Post Procedure Diagnosis: Colonoscopy Findings: Four small to medium sized polyps were removed - 1 polyp was not retrieved Moderate hemorrhoids on retroflexed exam. Plan: Pt has a FU appointment on 05/04/24 with Aurora Reynoso NP Repeat Colonoscopy in 3-5 years if polyps are adenomatous and 10 year if polyps are hyperplastic. Above findings were reviewed with the patient and relevant handouts were given and the discharge area.
[2024-03-30 09:01] VITALS: BP 156/119; PULSE 72; RESP 16; TEMP 36.1; O2SAT 97
[2024-03-30 09:06] VITALS: BP 144/100
[2024-03-30 09:11] VITALS: BP 147/98
[2024-03-30 09:26] VITALS: BP 152/99; PULSE 60; RESP 16; TEMP 36.3; O2SAT 98
== END 2024-03-30 09:59 | disposition home or self-care (01) ==
PROVIDERS: PCP Internal Medicine; Visit Provider Internal Medicine Gastroenterology
PROC: 0DJD8ZZ Inspection of Lower Intestinal Tract, Via Natural or Artificial Opening Endoscopic (ICD-10-PCS; CPT 45378; principal; 2024-03-30 08:30)
DX: Z12.11 Encounter for screening for malignant neoplasm of colon (principal); D12.0 Benign neoplasm of cecum; D12.2 Benign neoplasm of ascending colon; D12.4 Benign neoplasm of descending colon; K57.30 Diverticulosis of large intestine without perforation or abscess without bleeding; K64.8 Other hemorrhoids; K21.9 Gastro-esophageal reflux disease without esophagitis; E66.9 Obesity, unspecified; Z68.28 Body mass index [BMI] 28.0-28.9, adult; H53.9 Unspecified visual disturbance; Z98.890 Other specified postprocedural states; Z87.891 Personal history of nicotine dependence
CPT/HCPCS: 45385; 45380; 88305; J2003; J2704

== ENCOUNTER → 2024-03-30 07:28 | Outpatient (BNV) | payer OTHER, SELFPAY | PROVIDERS: PCP Internal Medicine; Visit Provider Internal Medicine Gastroenterology | DX: Z12.11 Encounter for screening for malignant neoplasm of colon (principal); D12.4 Benign neoplasm of descending colon; D12.2 Benign neoplasm of ascending colon; K63.5 Polyp of colon; K64.8 Other hemorrhoids | CPT/HCPCS: 45380; 45385 ==

== ENCOUNTER 2024-04-03 09:06 | Outpatient (RCR) | payer OTHER, SELFPAY ==
--- NOTE | 2024-04-24 10:28 | MHC.PT.DC ---
[facility] [place] Office [place] Office [place] Office [address] Fazal Ojeda [address] [phone] F: [phone] F: [phone] F: [phone] F: [phone] Physical Therapy Discharge Report Diagnosis: RIGHT SHOULDER PAIN (KP) Date of Surgery: Date of Evaluation: 03/11/24 Date of Discharge: Treatments to Date: 7 Cancellations to Date: 0 No Shows to Date: 0 Discharge Status: Improved Function Independent with HEP Recommend MD Follow-up Discharge Summary: PROGRESSED WELL WITH PT AND INDEPENDENT WITH CURRENT HEP. CONTS WITH DECREASED STRENGTH OF RIGHT ROTATOR CUFF WELL ROUGH CREPITUS WITH ROTATIONAL MOTION. RECOMMEND MD F/U AND POSSIBLE IMMAGING Electronically signed by: EMILEE REYES PT DPT Please sign and return to therapist. Thank you for your referral.
== END 2024-04-24 10:28 | disposition home or self-care (01) ==
LOC: HO.PT 09:06
PROVIDERS: PCP Internal Medicine; Visit Provider Internal Medicine
DX: M25.511 Pain in right shoulder (principal)
CPT/HCPCS: 97110; 97140; 97161; 97535

== ENCOUNTER 2025-01-25 11:28 | Outpatient (AMB) | payer OTHER, SELFPAY ==
[2025-01-25 11:32] VITALS: BP 148/88; PULSE 76; O2SAT 98; BMI 30.8
--- NOTE | 2025-01-25 11:32 | A.OFFPC_ITS ---
Vital Signs 01/25/25 11:32 Height 6 ft 1.5 in Weight 237 lb BMI 30.8 BP 148/88 H Blood Pressure Location Lt brachial Position Sitting Pulse 76 Pulse Source Pulse Oximeter Pulse Oximetry (%) 98 Oxygen Delivery Method Room Air Intake Visit Reasons: Annual Physical appointment Allergies No Known Allergies (No Known Allergies*) Allergy (Verified 01/25/25 11:34) Medication List - Last Reconciled 01/25/25 by Chey Dempsey MD No Known Home Meds Tobacco use date assessed: 01/25/25 Dental Screening Dental Screen Date: 01/25/25 Did you have a dental visit in the last 12 months?: Yes Did you have a dental problem in the last 6 months where you did not have access to dental care?: No Was dental information given to patient?: Patient has dentist HPI Annual Physical appointment HPI Details concern on calcium scoring [facility] Medical History (Updated 01/25/25 @ 12:37 by Chey Dempsey MD) Obesity (BMI 30.0-34.9) Hypertriglyceridemia Ascending aorta dilatation Fatty liver Vision changes LFT elevation Nasal fracture Urinary hesitancy Morbid (severe) obesity due to excess calories Surgical History History of bilateral inguinal hernia repair (08/23/22) H/O colonoscopy History of cardiac radiofrequency ablation Family History (Updated 01/25/25 @ 11:38 by Madelyn Guthrie CMA) Paternal Uncle Lung cancer Mother No problems noted. Father No problems noted. Son No problems noted. Daughter No problems noted. Social History (Updated 01/24/24 @ 09:34 by Chey Dempsey MD) Household Members: Spouse and Children Housing: Apartment Are you a primary disabilities caregiver to a significant other at home: No Do you presently have visiting nurse or other home services: No Alcohol intake: current Alcohol intake frequency: holidays/special occasions only Comment: 4x a week 2 glasses Patient Tobacco Use Status: Former Tobacco user Tobacco use type: Cigarette Years Smoked: 1999 quit oral cannabis e-Cigarette/Vaping Use: Never Used Second Hand Smoke Exposure: No service: No Current occupational status: employed Cognitive needs: No Hearing needs: No Vision needs: Yes Questionnaire PHQ-9 Over the last 2 weeks, how often have you been bothered by any of the following problems? 1. Little interest or pleasure in doing things: not at all 2. Feeling down, depressed, or hopeless: not at all 3. Trouble falling or staying asleep, or sleeping too much: several days 4. Feeling tired or having little energy: several days 5. Poor appetite or overeating: not at all 6. Feeling bad about yourself - or that you are a failure or have let yourself or your family down: not at all 7. Trouble concentrating on things, such as reading the newspaper or watching television: not at all 8. Moving or speaking so slowly that other people could have noticed. Or the opposite - being so fidgety or restless that you have been moving around a lot more than usual: not at all 9. Thoughts that you would be better off or of hurting yourself in some way: not at all Total score: 2 Depression Screening Interpretation: Positive Depression Screening Done: Yes Source: Developed by Drs. Enrike Parrish, Nancy Pham, Ajit Waggoner and colleagues, with an educational amelie from [employer]. Thrive Questionnaire Date Thrive assessed: 01/19/25 I am a: Patient What is your living situation today?: I have a steady place to live Within the past 12 months, did the food you bought not last and you didn't have the money to get more?: I choose not to answer this question Within the past 12 months, did you worry whether your food would run out before you got money to buy more?: Never true Do you have trouble paying for medicines?: I choose not to answer this question Do you have trouble getting transportation to medical appointments?: No Do you have trouble paying your heating and electricity bill?: Yes Do you have trouble taking care of your child, family member or friend?: No Do you have trouble with day-to-day activities such as bathing, preparing meals, shopping, managing finances, etc.?: No Are you currently unemployed and looking for a job?: No Are you interested in more education?: No Please select the resources that you would like help with: Utilities Currently or been in a relationship where the following occur: No concerns reported THRIVE Score: 1 AUDIT C Alcohol Use Questionnaire (AUDIT-C) 1. How often do you have a drink containing alcohol?: 2-3 times a week 2. How many drinks containing alcohol do you have on a typical day when you are drinking?: 1 or 2 3. How often do you have six or more drinks on one occasion?: Monthly Total Score: 5 MANJINDER-7 AMB Questionnaire MANJINDER-7 Date MANJINDER - 7 assessed: 01/25/25 Feeling nervous, anxious, or on edge: 0 = Not at all Not being able to stop or control worryin = Not at all Worrying too much about different things: 0 = Not at all Trouble relaxin = Not at all Being so restless that it is hard to sit still: 0 = Not at all Becoming easily annoyed or irritable: 0 = Not at all Feeling afraid as if something awful might happen: 0 = Not at all Total MANJIDNER-7 score (0-4 normal; 5-9 mild; 10-14 moderate; 15-21 severe): 0 Source: Developed by Drs. Enrike Parrish, Nancy Pham, Ajit Waggoner and colleagues, with an educational amelie from [employer]. Review of Systems Const Denies poor appetite and Denies weakness Eyes Denies no additional complaints ENT Reports Normal hearing present, Denies dizziness, Denies nasal congestion, Denies tinnitus and Denies sore throat Card Denies chest pain, Denies syncope, Denies rapid heart rate and Denies dyspnea Resp Denies cough and Denies dyspnea GI Denies change in stool character, Reports constipation, Denies diarrhea, Denies nausea and Denies vomiting Denies dysuria and Denies urinary frequency Neuro Reports Normal hearing present, Denies confusion, Denies dizziness, Denies syncope and Denies weakness Psych Denies confusion Physical exam (Primary Care) Vital Signs: Last Vital Signs Pulse 76 01/25/25 11:32 BP 148/88 H 01/25/25 11:32 Pulse Ox 98 01/25/25 11:32 Oxygen Delivery Method Room Air 01/25/25 11:32 BMI result Body Mass Index 30.8 Tobacco/Smoking Status: Tobacco use Status Tobacco use date assessed 01/25/25 01/25/25 11:35 Patient Tobacco Use Status Former Tobacco user 01/25/25 11:35 Tobacco use type Cigarette 01/25/25 11:35 e-Cigarette/Vaping Use Never Used 01/25/25 11:35 PHQ-9: PHQ-9 Score PHQ-9: Total score 2 01/25/25 12:21 Depression Screening Interpretation: Positive Thrive Assessment: Date of Thrive Assessment Date Thrive assessed 01/19/25 01/25/25 11:35 Currently or been in a relationship where the following occur: No concerns reported Const General: No confusion Orientation/consciousness: No confusion HENMT Head: Yes normocephalic Ears: external ears normal and TM's normal bilaterally Face and sinus: Yes normal facial exam Mouth: moist mucous membranes Throat: Yes tonsils normal Eyes Conjunctivae: conjunctivae normal Pupils: Equal, round and reactive pupils present and Pupil accommodation reflex normal Direct Ophthalmoscopy: normal light reflex Neck Neck: No lymphadenopathy Thyroid: Thyroid normal Chest Chest palpation & inspection: normal inspection of the chest Resp Effort & Inspection: normal respiratory effort and no audible wheezes Auscultation: clear to auscultation bilaterally, no crackles, no wheezes and lung sounds not diminished Cardio Rate: regular rate Rhythm: regular rhythm Peripheral pulses: radial pulses present and dorsalis pedis present GI Palpation (GI): no masses Auscultation: normal bowel sounds and normoactive bowel sounds Rectal Exam - Male: Yes deferred Skin General skin exam: no rashes or lesions noted Rashes: no rashes Neuro General: No confusion Cranial nerves: Yes Equal, round and reactive pupils present and Yes Normal hearing present Cognition (Neuro): normal cognition Gait exam (Neuro): Normal gait present Motor exam (neuro): 5/5 motor strength present throughout Deep tendon reflexes (DTR's): Right brachioradialis reflex intensity grade: 2+, Left brachioradialis reflex intensity grade: 2+, Right patellar reflex intensity grade: 2+ and Left patellar reflex intensity grade: 2+ Extrem General: No edema Coding Level of Care Code Est Pt Prev Care 40-64y(99297) Diagnoses Annual physical exam Z00.00 Fatty liver K76.0 Tubular adenoma of colon D12.6 Atrial fibrillation I48.91 Hypertriglyceridemia E78.1 Obesity (BMI 30.0-34.9) E66.9 Elevated blood pressure reading without diagnosis of hypertension R03.0 Varicose vein of leg I83.90 Vision changes H53.9 Assessment & Plan Assessment & Plan (1) Annual physical exam: Code(s): Z00.00 - Encounter for general adult medical examination without abnormal findings Category: Medical Plan: Patient is advised to eat healthy, keep well hydrated, keep active and have adequate sleep. (2) Fatty liver: Comment: With splenomegaly August 2023 Code(s): K76.0 - Fatty (change of) liver, not elsewhere classified Category: Medical Plan: Low-fat diet and exercise (3) Tubular adenoma of colon: Comment: March 2024 Code(s): D12.6 - Benign neoplasm of colon, unspecified Category: Medical Plan: Repeat testing in 3-5 years (4) Atrial fibrillation: Comment: Ablation 2009 Code(s): I48.91 - Unspecified atrial fibrillation Category: Medical Plan: Doing good stable (5) Hypertriglyceridemia: Code(s): E78.1 - Pure hyperglyceridemia Category: Medical Plan: Avoid fried foods, chicken skin, eggs, butter margarine, pastries and meat. Be it pork or beef they have a lot of cholesterol (6) Obesity (BMI 30.0-34.9): Code(s): E66.9 - Obesity, unspecified Category: Medical Plan: Diet and exercise (7) Elevated blood pressure reading without diagnosis of hypertension: Comment: Blood pressure resolved Code(s): R03.0 - Elevated blood-pressure reading, without diagnosis of hypertension Category: Medical Plan: advised to monitor and record (8) Varicose vein of leg: Code(s): I83.90 - Asymptomatic varicose veins of unspecified lower extremity Category: Medical (9) Vision changes: Code(s): H53.9 - Unspecified visual disturbance Category: Medical Plan History of Present Illness The patient is a 54-year-old male presenting for a wellness visit and management of chronic conditions. The patient has a history of obesity, with a noted weight gain of 10 pounds. He has been advised to follow a low-fat diet and increase physical activity to manage his weight. The patient has a history of hypercholesterolemia and hypertriglyceridemia, with previous blood work showing elevated levels. He has been advised to manage these conditions through diet and exercise. The patient has a history of atrial fibrillation and has undergone multiple ablations and heart surgeries. He reports no new cardiac symptoms but is concerned about his blood pressure, which has been elevated since March 2024. The patient has a history of fatty liver and ascending aortic dilatation, with the last measurement being 3.7 cm in July 2023. He is advised to monitor these conditions regularly. The patient underwent a colonoscopy in March 2024, which revealed a tubular adenoma. He was advised to repeat the colonoscopy in 3 to 5 years. The patient reports a history of sinus infections and allergies, with a recent episode occurring three weeks ago. He attributes this to environmental factors such as dust and pollen. The patient experiences occasional heartburn, which he associates with dietary habits. He has been advised to avoid late meals and elevate his head during sleep to manage symptoms. The patient has a history of hemorrhoids, with occasional bleeding noted. He is advised to increase fiber intake and hydration. Health Maintenance - Colonoscopy performed in March 2024 with polyp removal; advised to repeat in 3 to 5 years - Blood pressure monitoring advised at home to manage hypertension - Recommended low-fat diet and regular exercise for weight management and cholesterol control - Advised to avoid late meals and elevate head during sleep to manage heartburn - Recommended increased fiber intake and hydration for hemorrhoid management - Referral for coronary artery calcium scoring to assess cardiovascular risk Social History - Alcohol consumption: Drinks wine four days a week, 2-3 glasses per occasion - Caffeine intake: Consumes a pot of coffee in the morning and additional coffee throughout the day - Exercise: Limited physical activity, advised to increase exercise - Smoking: Denies smoking cigarettes or recreational drugs - Occasional use of edibles for sleep Review of Systems - Cardiovascular: Reports occasional palpitations, denies chest pain or syncope - Respiratory: Denies dyspnea, cough, or wheezing - Gastrointestinal: Reports occasional heartburn, denies nausea or vomiting - Neurological: Denies dizziness or headaches - Musculoskeletal: Reports neck pain associated with stress, denies joint pain - Dermatological: Reports skin tags in the armpits Physical Exam General: Cooperative, healthy appearing, comfortable, no acute distress and well developed Orientation: Patient oriented x3 Limitations: No limitations Head: Normal to inspection Ears: Hearing slightly worse, but not bad enough for testing Nose: Normal external nose present Face and sinus: Normal facial exam, recent sinus infection noted Eyes: Appearance normal, both eyes and all related structures Neck: Normal visual inspection, occasional throbbing pain noted, Yes full ROM Respiratory: Normal respiratory effort and able to speak in complete sentences. Clear to auscultation bilaterally Cardiovascular: Regular rate and rhythm. Normal S1 and S2, history of atrial fibrillation GI: Normal to inspection. Soft to palpation and nontender, history of tubular adenoma of the colon Skin: No rashes or lesions noted, presence of skin tags in the armpits Neuro: Patient oriented x3 Extremities: Normal to inspection, presence of varicose veins noted Results - Labs: Normal blood count, normal electrolytes, renal function, blood sugar, liver function; hypertriglyceridemia noted - Tests: Colonoscopy in March 2024 showing tubular adenoma - Diagnostics: Ascending aortic dilatation measured at 3.7 cm in July 2023 Plan Patient was informed and verbally consented to the use of an ambient scribe for clinic note documentation during this visit. 1. Obesity The patient is advised to follow a low-fat diet and increase physical activity to manage weight gain. Regular monitoring of weight and dietary habits is recommended. 2. Hypercholesterolemia The patient is advised to manage cholesterol levels through diet and exercise. Regular lipid panel monitoring is recommended to assess progress. 3. Atrial Fibrillation The patient has undergone multiple ablations and heart surgeries for atrial fibrillation. He is advised to monitor for any new cardiac symptoms and maintain regular follow-ups with cardiology. 4. Hypertension The patient is advised to monitor blood pressure at home and record the readings. Lifestyle modifications including reduced salt intake and increased physical activity are recommended. 5. Tubular Adenoma Of The Colon The patient underwent a colonoscopy in March 2024, which revealed a tubular adenoma. He is advised to repeat the colonoscopy in 3 to 5 years for surveillance. 6. Sinus Infection The patient reports a recent sinus infection attributed to environmental factors. He is advised to manage symptoms with pidl-wya-glibsqi allergy medications as needed. 7. Heartburn The patient experiences occasional heartburn and is advised to avoid late meals and elevate his head during sleep. Dietary modifications are recommended to manage symptoms. 8. Hemorrhoids The patient reports occasional bleeding from hemorrhoids. Increased fiber intake and hydration are recommended to alleviate symptoms. Discussion Notes During the visit, I discussed with the patient the importance of managing his weight through a low-fat diet and regular exercise to address obesity and hype rcholesterolemia. We reviewed the need for regular blood pressure monitoring at home and the potential need for medication if lifestyle changes do not suffice. I emphasized the importance of follow-up colonoscopy in 3 to 5 years due to the presence of a tubular adenoma. We also discussed managing heartburn through dietary changes and the use of [id number] medications for sinus infections and allergies. Patient Instructions - Follow a low-fat diet and increase physical activity to manage weight and cholesterol levels. - Monitor blood pressure at home regularly and record the readings. - Schedule a follow-up colonoscopy in 3 to 5 years. - Avoid late meals and elevate head during sleep to manage heartburn. - Use [id number] allergy medications as needed for sinus infections and a llergies. - Increase fiber intake and hydration to manage hemorrhoids. Orders: Orders Free T4 (Free Thyroxine) Today I48.91 - Unspecified atrial fibrillation Vitamin B12 and Folate Today I48.91 - Unspecified atrial fibrillation Hemoglobin A1c Today I48.91 - Unspecified atrial fibrillation Prostate Specific Antigen Scr Today I48.91 - Unspecified atrial fibrillation CT Coronary Calcium Score Today I48.91 - Unspecified atrial fibrillation Complete Blood Count Auto Diff Today I48.91 - Unspecified atrial fibrillation Comprehensive Met. Panel Today I48.91 - Unspecified atrial fibrillation Thyroid Stimulating Hormone Today I48.91 - Unspecified atrial fibrillation Lipid Panel Today E78.00 - Pure hypercholesterolemia, unspecified, I48.91 - Unspecified atrial fibrillation Referrals Vascular Surgery Referral I83.90 - Asymptomatic varicose veins of unspecified lower extremity Ophthalmology Referral H53.9 - Unspecified visual disturbance
== END 2025-01-25 12:51 | disposition home or self-care (01) ==
LOC: HO.HMCH 11:29
PROVIDERS: PCP Internal Medicine; Visit Provider Internal Medicine
DX: Z00.00 Encounter for general adult medical examination without abnormal findings (principal); I48.91 Unspecified atrial fibrillation; E66.9 Obesity, unspecified; Z68.30 Body mass index [BMI] 30.0-30.9, adult; K76.0 Fatty (change of) liver, not elsewhere classified; D12.6 Benign neoplasm of colon, unspecified; E78.1 Pure hyperglyceridemia; R03.0 Elevated blood-pressure reading, without diagnosis of hypertension; I83.90 Asymptomatic varicose veins of unspecified lower extremity; H53.9 Unspecified visual disturbance

== ENCOUNTER → 2025-01-25 11:28 | Outpatient (BNVA) | payer OTHER, SELFPAY | PROVIDERS: PCP Internal Medicine; Visit Provider Internal Medicine | DX: Z00.00 Encounter for general adult medical examination without abnormal findings (principal); K76.0 Fatty (change of) liver, not elsewhere classified; D12.6 Benign neoplasm of colon, unspecified; I48.91 Unspecified atrial fibrillation; E78.1 Pure hyperglyceridemia; E66.9 Obesity, unspecified; R03.0 Elevated blood-pressure reading, without diagnosis of hypertension; I83.90 Asymptomatic varicose veins of unspecified lower extremity; H53.9 Unspecified visual disturbance; R12 Heartburn; K64.9 Unspecified hemorrhoids; Z91.09 Other allergy status, other than to drugs and biological substances | CPT/HCPCS: 99396 ==

== ENCOUNTER 2025-03-25 10:26 | Outpatient (AMB) | payer OTHER, SELFPAY ==
[2025-03-25 10:31] VITALS: BMI 30.8
--- NOTE | 2025-03-25 10:31 | MHC.OFFVIS ---
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 Complaints include pain over varicosities, swelling of lower extremities, cramping, fatigue, and heaviness of the lower extremities. 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 It is noted more so in right leg. He notes multiple spider telangiectasias on the medial aspect of bilateral thighs Patient denies any previous venous surgery or injections. Patient denies any history of DVT/ PE. Patient denies any history of phlebitis. Trial of compression includes - [id number] They now present for vascular evaluation regarding their varicose veins. [facility] Medical History Obesity (BMI 30.0-34.9) Hypertriglyceridemia Ascending aorta dilatation Fatty liver Vision changes LFT elevation Nasal fracture Urinary hesitancy Morbid (severe) obesity due to excess calories Surgical History History of bilateral inguinal hernia repair (08/23/22) H/O colonoscopy History of cardiac radiofrequency ablation Family History Paternal Uncle Lung cancer Mother No problems noted. Father No problems noted. Son No problems noted. Daughter No problems noted. Social History Household Members: Spouse and Children Housing: Apartment Are you a primary primary care nurse practitioner to a significant other at home: No Do you presently have visiting nurse or other home services: No Alcohol intake: current Alcohol intake frequency: holidays/special occasions only Comment: 4x a week 2 glasses Patient Tobacco Use Status: Former Tobacco user Tobacco use type: Cigarette Years Smoked: 1999 quit oral cannabis e-Cigarette/Vaping Use: Never Used Second Hand Smoke Exposure: No service: No Current occupational status: employed Cognitive needs: No Hearing needs: No Vision needs: Yes Review of Systems Const All systems reviewed & are unremarkable except as noted in HPI and below Reports no additional complaints ENT Reports Normal hearing present Card Denies chest pain, Denies chest pain at rest, Denies chest pain with activity and Denies pedal edema Resp Denies cough GI Denies abdominal pain Musc Denies abnormal gait, Denies muscle cramps and Denies radiating pain into limb Skin/Breast Denies skin ulcer and Denies wounds Neuro Reports Normal hearing present and Denies abnormal gait Psych Reports no additional complaints Physical Exam Vital Signs: BMI result Body Mass Index 30.8 Const General: cooperative, healthy appearing and comfortable Orientation/consciousness: oriented to person, oriented to place and oriented to time HEENT Head: Yes normal to inspection Neck Neck: Yes normal visual inspection Carotids: no bruits Chest Chest palpation & inspection: normal inspection of the chest Resp Effort & Inspection: normal respiratory effort and able to speak in complete sentences Auscultation: clear to auscultation bilaterally, no crackles, no rales, no rhonchi and no wheezes Cardio Rate: regular rate Rhythm: regular rhythm Heart sounds: S1 normal heart sound present and S2 normal heart sound present Bruits: no carotid bruits Peripheral pulses: Peripheral pulses 2+ throughout GI Inspection: Yes normal to inspection Skin Wounds: no wounds Hair: normal Neuro General: oriented to person, oriented to place and oriented to time Cranial nerves: Yes CN's II-XII intact bilaterally and Yes Normal hearing present Cognition (Neuro): normal cognition Motor exam (neuro): 5/5 motor strength present throughout Extrem Other: venous exam: +1 edema with multiple spider telangiectasias in the medial aspects of both thighs General: No clubbing, No cyanosis and Yes edema Psych Appearance: grossly normal Mental Status: mental status grossly normal Speech and movement: Normal speech and movement present Assessment & Plan Assessment & Plan (1) Varicose veins of right lower extremity with inflammation: Code(s): I83.11 - Varicose veins of right lower extremity with inflammation Category: Medical Plan: In short, the patient has evidence of venous insufficiency. I have discussed the pathophysiology with the patient. In addition I have provided informational material regarding venous disease to the patient. We have discussed conservative measures including compression, elevation, and exercise. I have also provided a handout regarding appropriate use of compression stockings and where to purchase good compression stockings as well. I have taken the liberty of ordering venous insufficiency testing with the patient. They will follow up with me after testing. The patient had an opportunity to ask questions regarding the treatment plan. All questions were answered. Imaging studies, laboratory studies and physical exam results were discussed and reviewed in detail. No major barriers to understanding were identified. The patient expressed understanding and agreement with the above treatment plan. The patient is aware they should contact our office by phone for worsening of the current condition or the appearance of new symptoms. Thank you for allowing me to participate in the vascular care of this patient. If you have any questions or concerns regarding the treatment for the above condition please do not hesitate to contact me. The office telephone contact is [phone]. This note is constructed using voice recognition software. While every effort has been made to ensure accuracy, burlap man errors may have been included. Thank you for allowing me to participate in the care of your patient. Yours sincerely, Sav Gray MD, FACS, R.P.V.I. Orders: Orders US venous duplex LE BI Today I83.11 - Varicose veins of right lower extremity with inflammation Coding Level of Care Code New Pt Level 4 (12640) Diagnoses Varicose veins of right lower extremity with inflammation I83.11
== END 2025-03-25 11:06 | disposition home or self-care (01) ==
LOC: HO.HVS 10:27
PROVIDERS: PCP Internal Medicine; Visit Provider Surgery Vascular Surgery
DX: I83.11 Varicose veins of right lower extremity with inflammation (principal)
CPT/HCPCS: 99204

== ENCOUNTER → 2025-03-25 10:26 | Outpatient (BNVA) | payer OTHER, SELFPAY | PROVIDERS: PCP Internal Medicine; Visit Provider Surgery Vascular Surgery | DX: I83.11 Varicose veins of right lower extremity with inflammation (principal) | CPT/HCPCS: 99202 ==